=== PATIENT | female | born 1960 | race Caucasian/White ===

== ENCOUNTER 2024-06-28 16:16 | Emergency (ER) | payer OTHER, SELFPAY ==
[2024-06-28 16:17] VITALS: BP 139/83
[2024-06-28 16:47] LABS: % Basophils 0.4 % (0-2); % Eosinophils 1.8 % (0-6); % Immature Granulocytes 0.2 % (0-0.5); % Lymphocytes 40.1 % (20.5-51.1); % Monocytes 8.8 % (1.7-9.3); % Neutrophils 48.7 % (42.2-75.2); Absolute Eosinophils 0.1 10^3/uL (0-0.7); Absolute Monocytes 0.4 10^3/uL (0.1-0.6); Absolute Neutrophils 2.4 10^3/uL (1.4-6.5); Hematocrit 33.9 % (37.0-47.0); Hemoglobin 11.7 g/dL (12.0-16.0); Mean Corp Hgb Conc. 34.5 g/dL (33.0-37.0); Mean Corpuscular Hgb 29.8 pg (27.0-31.0); Mean Corpuscular Volume 86.5 fL (81.0-99.0); Mean Platelet Volume 10.4 fL (7.4-10.4); Nucleated Red Blood Cells % 0 %; Platelet Count 190 10^3/uL (130-400); Red Blood Cell Count 3.92 10^6/uL (4.20-5.40); Red Cell Dist. Width 11.3 % (11.5-14.5); White Blood Cell Count 4.9 10^3/uL (4.8-10.8)
[2024-06-28 17:06] LABS: ALT (SGPT) 13 U/L (0-35); AST (SGOT) 22 U/L (14-36); Albumin 4.6 g/dl (3.5-5.0); Alkaline Phosphatase 82 U/L (38-126); Blood Urea Nitrogen 13 mg/dl (7-17); Calcium 9.9 mg/dl (8.4-10.2); Carbon Dioxide 28 mmol/L (22-30); Chloride 100 mmol/L (98-107); Glucose 92 mg/dl (70-99); Potassium 4.3 mmol/L (3.5-5.1); Sodium 135 mmol/L (135-145); Total Bilirubin 0.5 mg/dl (0.2-1.3); Total Protein 7.2 g/dl (6.3-8.2); eGFR > 60.00
[2024-06-28 17:31] VITALS: BMI 24.7
[2024-06-28 17:39] VITALS: BP 139/81
--- NOTE | 2024-06-28 17:56 | ED.GENMED ---
History of Present Illness
General
Chief Complaint: Abdominal Pain
Time Seen by Provider: 06/28/24 17:36
History of Present Illness
History of Present Illness:
63-year-old female with history of ovarian cancer currently undergoing immunotherapy with Keytruda presents to the emergency department for evaluation of intractable left lower quadrant pain for the past 4 to 6 weeks. Pain is constant, and radiates
to the upper abdomen as well as the left upper thigh. She is currently following at [facility] and last had CT imaging in March. Denies any fevers, night sweats, dysuria, hematuria, or diarrhea/melena. She is apprehensive to take any opioids
Past History
Past History
ED Past Medical History: None; Negative Asthma, HTN, Hypercholesterolemia or NIDDM
ED Past Surgical History: Orthopedic (Knee surgery, Foot surgery left)
Social History
Tobacco: Non-smoker
Alcohol: Daily (Beer 1-2)
Personal:
Living: alone
Review of Systems
Review of Systems
Allergies reviewed?: Yes
All Other Systems: ROS reviewed and negative except as documented in HPI and ROS
Phy Exam
Physical Exam
Physical Exam:
GEN: Well appearing, NAD, WDWN
Eyes: PERRLA, EOMs intact, no scleral icterus
HENT: NCAT, oral mucosa moist
Lungs: CTAB, no wheezes, rales, rhonchi, normal chest wall excursion
Cardiac: RRR, no M/R/G, no peripheral edema. Radial pulses 2+ bilat
Abdomen: Soft, focal lower left quadrant tenderness, no masses, no rigidity
Neuro: AO x 3
MSK: No gross deformity or ecchymosis. No edema. No digital clubbing
Skin: No rashes, petechiae. Normal color, no pallor or jaundice.
Psych: Calm, cooperative, proper hygiene
Course
Orders/Labs/Results
Orders:
Orders
06/28/24 16:39
Complete Blood Count/With Diff Urgent
Comprehensive Metabolic Panel Urgent
06/28/24 17:56
CT Abd/Pel (IV only)-DH only Urgent
Comment:
Reason For Exam: LLQ pain
06/28/24 18:16
Ketorolac [Toradol] 15 mg IV NOW STA
Abnormal Lab Results
06/28/24
16:39
RBC 3.92 L 10^6/uL
(4.20-5.40)
Hgb 11.7 L g/dL
(12.0-16.0)
Hct 33.9 L %
(37.0-47.0)
RDW 11.3 L %
(11.5-14.5)
06/28/24 16:39
06/28/24 16:39
Vital Signs
Initial and Last Documented VS:
Initial Vital Signs
Temp Pulse Resp BP Pulse Ox
97.8 F 61 18 139/83 99
06/28/24 16:17 06/28/24 16:17 06/28/24 16:17 06/28/24 16:17 06/28/24 16:17
Last Documented Vital Signs
Temp Pulse Resp BP Pulse Ox
97.8 F 51 15 125/87 99
06/28/24 16:17 06/28/24 19:00 06/28/24 19:00 06/28/24 19:00 06/28/24 19:00
MDM/Problems Addressed
MDM/Problems Addressed:
At this time the etiology to his symptoms is not clear. There is some vague inflammatory stranding around the sigmoid/descending colon however patient's duration of symptoms would not be consistent with diverticulitis particular given lack of fever
or leukocytosis. There is also no definitive signs diverticuli on imaging. Certainly could be progression of disease and thus she will need to follow-up with [facility] for further evaluation of this. Will prescribe supportive
medications and advise close oncology follow-up
*Critical Care Note
Total Time (30-74mins, 75-104mins- exclusive of procedures): Not Applicable
ED Attending Note
-
Portions of this chart may have been created with voice recognition software.� Occasional wrong word or��sound alike� substitutions may have occurred due to the inherent limitations of voice recognition software.
Discharge Plan
Departure
Patient Disposition: Home (Routine Discharge)
Date of Disposition: 06/28/24
Time of Disposition: 20:18
Patient with high blood pressure during this ER visit?: No
Discharge Problem:
Abdominal pain, left lower quadrant
Instructions: Abdominal Pain
Prescriptions:
New
celecoxib [Celebrex] 200 mg capsule
200 mg PO BID Qty: 30 0RF
oxycodone 5 mg tablet
5 mg PO Q8H PRN (Reason: Pain) Qty: 10 0RF
No Action
cyanocobalamin (vitamin B-12) 500 mcg Tablet
500 mcg PO DAILY
calcium carbonate 500 mg calcium (1,250 mg) Tablet
500 mg PO DAILY
ascorbic acid (vitamin C) [Vitamin C] 500 mg Tablet
500 mg PO DAILY
rizatriptan 5 mg Tablet
5 mg PO DAILYPRN PRN (Reason: migraines)
cholecalciferol (vitamin D3) [Vitamin D3] 25 mcg (1,000 unit) Tablet
25 mcg PO DAILY
Neuriva Plus Brain Performance 1.7 mg-400 mcg- 2.4 mcg Capsule
1 cap PO DAILY
sennosides [Senna Laxative] 8.6 mg Tablet
17.2 mg PO BID Qty: 60 0RF
famotidine 20 mg Tablet
20 mg PO DAILY Qty: 30 0RF
gabapentin 300 mg Capsule
300 mg PO TID Qty: 90 0RF
simethicone 80 mg Tablet,Chewable
80 mg PO QIDPRN PRN (Reason: gas pain) Qty: 30 0RF
acetaminophen [Pain Relief ES (acetaminophen)] 500 mg Tablet
1,000 mg PO TID Qty: 90 0RF
tramadol 50 mg Tablet
50 mg PO Q6 Qty: 30 0RF
hydromorphone 2 mg Tablet
2 mg PO Q8HPRN PRN (Reason: breakthrough pain) Qty: 15 0RF
polyethylene glycol 3350 [Miralax] 17 gram Powder In Packet
17 g PO DAILY Qty: 30 0RF
docusate sodium 100 mg Capsule
100 mg PO BID Qty: 60 0RF
ondansetron HCl 4 mg tablet
4 mg PO Q8H PRN (Reason: nausea and vomiting) 5 Days Qty: 15 0RF
Referrals:
Elza Tomlinson, DO [Family Provider] -
Activity Restrictions/Additional Instructions:
contact your oncology team tomorrow for follow-up discussion
Interventions
Interventions:
*Risk Screen - Suicide Last Done: 06/28/24 16:17
*General Assessment Last Done: 06/28/24 16:17
*Neglect/Abuse Screening Last Done: 06/28/24 16:17
ED- Fall Risk Assessment Last Done: 06/28/24 17:40
*ED COVID-19 Vaccine History Last Done: 06/28/24 17:33
*Nursing Disposition Last Done: 06/28/24 20:29
UN-Tcizgn-Ndryilkgbc Assessment Last Done: 06/28/24 17:38
Discharge Date and Time
Discharge Date/Time: 06/28/24 20:33
Print Language: YI
[2024-06-28 18:01] VITALS: BP 97/79
[2024-06-28] MEDS: TORADOL 15 MG IV (18:21)
[2024-06-28 19:00] VITALS: BP 125/87
== END 2024-06-28 20:33 | disposition home or self-care (01) ==
LOC: EMR 16:16
PROVIDERS: Student in an Organized Health Care Education/Training Program; EMERGENCY PHYSICIAN Emergency Medicine; FAMILY PHYSICIAN Family Medicine
DX: R10.32 Left lower quadrant pain (principal); Z85.43 Personal history of malignant neoplasm of ovary
CPT/HCPCS: 99284; 96374; 74177; 80053; 85025; Q9967

== ENCOUNTER 2024-11-15 03:14 | Observation (INO) | payer OTHER, MEDICARE, SELFPAY ==
[2024-11-14 17:08] VITALS: BMI 22.6
[2024-11-14 17:16] VITALS: BP 147/102
[2024-11-14 17:38] LABS: % Basophils 0.2 % (0-2); % Eosinophils 0.4 % (0-6); % Immature Granulocytes 0.4 % (0-0.5); % Lymphocytes 12.1 % (20.5-51.1); % Monocytes 6.4 % (1.7-9.3); % Neutrophils 80.5 % (42.2-75.2); Absolute Monocytes 0.5 10^3/uL (0.1-0.6); Absolute Neutrophils 6.7 10^3/uL (1.4-6.5); Hematocrit 37.2 % (37.0-47.0); Hemoglobin 12.6 g/dL (12.0-16.0); Mean Corp Hgb Conc. 33.9 g/dL (33.0-37.0); Mean Corpuscular Hgb 29.2 pg (27.0-31.0); Mean Corpuscular Volume 86.3 fL (81.0-99.0); Mean Platelet Volume 9.5 fL (7.4-10.4); Nucleated Red Blood Cells % 0 %; Platelet Count 271 10^3/uL (130-400); Red Blood Cell Count 4.31 10^6/uL (4.20-5.40); Red Cell Dist. Width 12.2 % (11.5-14.5); White Blood Cell Count 8.3 10^3/uL (4.8-10.8)
[2024-11-14 18:02] LABS: ALT (SGPT) 17 U/L (0-35); AST (SGOT) 20 U/L (14-36); Albumin 4.8 g/dl (3.5-5.0); Alkaline Phosphatase 64 U/L (38-126); Blood Urea Nitrogen 15 mg/dl (7-17); Calcium 9.8 mg/dl (8.4-10.2); Carbon Dioxide 28 mmol/L (22-30); Chloride 92 mmol/L (98-107); Glucose 157 mg/dl (70-99); Lipase 25 U/L (23-300); Potassium 4.1 mmol/L (3.5-5.1); Sodium 129 mmol/L (135-145); Total Bilirubin 0.3 mg/dl (0.2-1.3); Total Protein 7.6 g/dl (6.3-8.2); eGFR > 60.00
--- NOTE | 2024-11-14 19:17 | ED.GENMED ---
History of Present Illness
General
Chief Complaint: Abdominal Pain
Source: patient
Exam Limitations: none
Time Seen by Provider: 11/14/24 18:29
History of Present Illness
History of Present Illness:
This is a 64 year old female that comes in with c/o abd pain. States that she is unable to get any relief from the pain. States that this started 2 days ago and it getting worse. Patient was discharge from [place] 5 days ago. Patient had a pain
pump placed in the right abd for Dilaudid. States that she has been nauseated, vomited once and has a hard time urinating. States that she has also felt dizzy. Denies any fever, chills, chest pain, SOB, diarrhea, headache, urinary burning.
Past History
Past History
ED Past Medical History: None and Cancer (Uterine Cancer, Inguiinal lymph nodes removed); Negative Asthma, HTN, Hypercholesterolemia or NIDDM
ED Past Surgical History: Gynecological (Hysterectomy) and Orthopedic ( right Knee surgery, Foot surgery left)
Social History
Tobacco: Non-smoker
Alcohol: None (Beer 1-2 for for a year)
Personal:
Living: alone
Review of Systems
Review of Systems
All Other Systems: ROS reviewed and negative except as documented in HPI and ROS
Constitutional: Reports no symptoms; Denies fever or chills
EENT: Reports no symptoms
Respiratory: Reports no symptoms; Denies cough or trouble breathing
Cardiac: Reports no symptoms; Denies chest pain
ABD/GI: Reports abdominal pain, nausea and vomiting (only once); Denies diarrhea
: Reports difficulty voiding; Denies dysuria, frequency or urgency
Musculoskeletal: Reports no symptoms
Skin: Reports no symptoms
Neurological: Reports dizzy; Denies headache
Psychiatric: Reports no symptoms
Phy Exam
General Physical Exam
General Presentation: mild distress
General age: appears stated age
General Skin: warm and dry
General Habitus: normal
General Mental: alert
General Hydration: dry mucous membranes
ENT Exam
ENT Exam: TM's normal, pharynx normal and neck supple
Eye Exam
Eye Exam: EOMI
Cardiovascular Exam
Cardiovascular Exam: regular rate/rhythm, no edema, no murmur and normal peripheral pulses
Pulmonary Exam
Pulmonary Exam: lungs clear, no respiratory distress, no rales, chest non tender, no crackles, no rhonchi, no wheezing and no cough
Gastrointestinal Exam
Gastrointestinal Exam: normal bowel sounds, soft, no organomegaly, no pulsatile mass, non distended, tender (Generalized abd tenderness with palpation) and other (Pain pump noted right abd. )
Abdominal Scars: other (Horizontal incision line right mid/lateral dry with glue maintained. Negative for any redness. )
Musculoskeletal Exam
Musculoskeletal Exam: full ROM and no edema
Skin Exam
Skin Exam: normal color, warm/dry, no rash and no petechia
Psychiatric Exam
Psychiatric Exam: normal mood/affect
Course
Orders/Labs/Results
Orders:
Orders
11/14/24 17:20
Electrocardiogram (*1) Urgent
Reason for Study: Abdominal Pain
EKG- Treatment ONCE
11/14/24 17:31
Complete Blood Count/With Diff Urgent
Comprehensive Metabolic Panel Urgent
Lipase Urgent
11/14/24 18:52
CT Abd/pel W Iv And Oral Contr Urgent
Comment: Pain pump right lower abd.
Reason For Exam: Generalized abd pain
0.9% Sodium Chloride 1000 ml [Nss] 1,000 ml IV BOLUS
Iohexol [Omnipaque] See Protocol PO NOW STA
Ondansetron Injectable [Zofran] 4 mg IV NOW STA
11/14/24 18:53
Acetaminophen 1000MG/100Ml [Ofirmev] 1,000 mg in 100 ml IV ONCE
Acetaminophen IV Indication:: ED Narcotic Naive Pt-ONCE
Ketorolac [Toradol] 30 mg IV NOW STA
11/14/24 20:49
Urinalysis Reflex To Culture Urgent
Date Specimen was Collected: 11/14/24
Time Specimen was Collected: 20:49
Urine Microscopic Reflex Cult Urgent
Urine Culture Urgent
CAMILO Source: U
Specimen Description:
Date Specimen was Collected: 11/14/24
Time Specimen was Collected: 20:49
11/14/24 23:22
Tamsulosin [Flomax] 0.4 mg PO NOW STA
11/14/24 23:42
Consult Urology [UROLOGY CONSULT] Urgent
Consulting Provider: Jose James
Was physician already notified: Yes
11/15/24 00:01
Admit/Transfer Patient As Directed
Co-Sign Provider:
Level of Care: Observation services
Assign to:: Medical/Surgical
Physician / Group: hospitalist
Diagnosis: nephrolithiasis
11/15/24 00:02
PRN Pain Medication Management As Directed
May give lesser potent ordered pain med per pt: Yes
preference::
Protocol:: Medication orders for pain may be administered in a
manner that supports deferring to patient preference
when the pt is:
- Requesting an ordered lesser potent pain medication.
Least to most potent pain medications are defined
as: acetaminophen < NSAID < tramadol < opioids
(morphine, oxycodone, hydromorphone).
- Requesting a lesser dose of the same medication IF
ORDERED.
- Requesting a less intrusive route of administration
if both routes are prescribed by the provider (PO <
IV).
11/15/24 00:03
Code Status As Directed
Resuscitation Status: Full Code
Abnormal Lab Results
11/14/24 11/14/24
17:31 20:49
Absolute Neuts (auto) 6.7 H 10^3/uL
(1.4-6.5)
Absolute Lymphs (auto) 1.0 L 10^3/uL
(1.2-3.4)
Neutrophils % 80.5 H %
(42.2-75.2)
Lymphocytes % 12.1 L %
(20.5-51.1)
Sodium 129 L mmol/L
(135-145)
Chloride 92 L mmol/L
(98-107)
Creatinine 0.5 L mg/dL
(0.6-1.0)
Glucose 157 H mg/dl
(70-99)
Leukocyte Esterase Rfl Trace A
(Negative)
Urine WBC (Reflex) 16-20 A /HPF
(0-5)
Urine Bacteria (Reflex) Few A
(Negative)
Urine Glucose Trace A
(Negative)
11/14/24 17:31
11/14/24 17:31
Hyponatremia, Chloride low. Hyperglycemia. Lipase normal at 25, Urine questionable for infection, Would wait for culture to treat
Vital Signs
Initial and Last Documented VS:
Initial Vital Signs
Temp Pulse Resp BP Pulse Ox
97.4 F 101 20 147/102 98
11/14/24 17:16 11/14/24 17:16 11/14/24 17:16 11/14/24 17:16 11/14/24 17:16
Last Documented Vital Signs
Temp Pulse Resp BP Pulse Ox
97.4 F 67 18 147/102 96
11/14/24 17:16 11/15/24 01:30 11/15/24 01:30 11/14/24 17:16 11/14/24 22:00
MDM/Problems Addressed
Differential Diagnosis Includes:
Chronic pain, Urinary tract infection. Dehydration. Constipation
MDM/Problems Addressed:
This is a 64 year old female that comes in with c/o abd pain. States that this started 2 days ago and has continued to get worse. States that she called [facility] and was told to come to the ER if it got worse. States that she didn't want to go down
to [facility].
Will check labs. CT abd/pelvis, Urine, give IV fluids and medication for pain.
Back into see patient. Explained that she has a 3mm stone in the right UVJ. There is also 4 new lesion on the liver and there is a Left renal mass. Patient states that she is still having pain. States that she does not feel comfortable going home.
Explained that she may only be admitted for 23 hours. Encouraged patient to increase her water intake. Will admit. Hospitalist notified.
Chronic conditions affecting care: Cancer
Acute Exacerbation and/or Progression of Chronic Illness: Cancer
*Radiology
Radiology exam reviewed: radiology read reviewed (CT- Approximate 3mm calculus at the right ureterovesical junction with mild right hydroureteronephrosis and delayed right sided renal excretion. Small simple right lobe hepatic cyst. At least four
new small low-attenuation hepatic lesions most likely not representing cyst, at least suspicious for), all reviewed NAD by ED Provider (CT cont- suspicious for malignancy/metastatic disease. Slightly high attenuation density in the left renal
pelvis, most likely differential diagnostic possibilities woudl be hemorrhage or tumor. Slight progression of left retroperitoneal lymphadenopathy resulting in possible minimal partial left ) and other (CT con- left sided obstructive uropathy.
Cannot exclude mild diffuse gallbladder wall thickening. Subcentimeter low-attenuation left lobe hepatic lesion, too small to characterize. )
*Pulse Oximetry
Patient hypoxic: no
*EKG
Interpreted by ED Provider?: Yes
Heart Rate: 92
Rate: normal
Rhythm: sinus
[place]: left axis deviation
Interval: normal interval
QRS Pattern: normal QRS
Ischemia: non-specific ST changes (II, III, aVF, V3, V4, V5, V6)
*Logging Crew Supervisor Interpretation
Rate: normal
Heart Rate: 88
*Critical Care Note
Total Time (30-74mins, 75-104mins- exclusive of procedures): Not Applicable
ED Attending Note
-
Portions of this chart may have been created with voice recognition software.� Occasional wrong word or��sound alike� substitutions may have occurred due to the inherent limitations of voice recognition software.
Discharge Plan
Departure
Patient Disposition: Admit
Date of Disposition: 11/14/24
Time of Disposition: 23:28
Admit to: Med/Surg
Presentation/result/management discussed w/ accepting MD/DO: Hospitalist
Patient with high blood pressure during this ER visit?: Yes
Condition: Good
Covid-19: Not Applicable
Discharge Problem:
Abdominal pain, Renal calculus, right
Prescriptions:
No Action
cyanocobalamin (vitamin B-12) 500 mcg Tablet
500 mcg PO DAILY
calcium carbonate 500 mg calcium (1,250 mg) Tablet
500 mg PO DAILY
ascorbic acid (vitamin C) [Vitamin C] 500 mg Tablet
500 mg PO DAILY
rizatriptan 5 mg Tablet
5 mg PO DAILYPRN PRN (Reason: migraines)
cholecalciferol (vitamin D3) [Vitamin D3] 25 mcg (1,000 unit) Tablet
25 mcg PO DAILY
Neuriva Plus Brain Performance 1.7 mg-400 mcg- 2.4 mcg Capsule
1 cap PO DAILY
sennosides [Senna Laxative] 8.6 mg Tablet
17.2 mg PO BID Qty: 60 0RF
famotidine 20 mg Tablet
20 mg PO DAILY Qty: 30 0RF
gabapentin 300 mg Capsule
300 mg PO TID Qty: 90 0RF
simethicone 80 mg Tablet,Chewable
80 mg PO QIDPRN PRN (Reason: gas pain) Qty: 30 0RF
acetaminophen [Pain Relief ES (acetaminophen)] 500 mg Tablet
1,000 mg PO TID Qty: 90 0RF
tramadol 50 mg Tablet
50 mg PO Q6 Qty: 30 0RF
hydromorphone 2 mg Tablet
2 mg PO Q8HPRN PRN (Reason: breakthrough pain) Qty: 15 0RF
polyethylene glycol 3350 [Miralax] 17 gram Powder In Packet
17 g PO DAILY Qty: 30 0RF
docusate sodium 100 mg Capsule
100 mg PO BID Qty: 60 0RF
ondansetron HCl 4 mg tablet
4 mg PO Q8H PRN (Reason: nausea and vomiting) 5 Days Qty: 15 0RF
celecoxib [Celebrex] 200 mg capsule
200 mg PO BID Qty: 30 0RF
oxycodone 5 mg tablet
5 mg PO Q8H PRN (Reason: Pain) Qty: 10 0RF
Referrals:
Elza Tomlinson DO [Family Provider] -
Interventions
Interventions:
*Risk Screen - Suicide Last Done: 11/14/24 17:16
*General Assessment Last Done: 11/15/24 01:50
*Neglect/Abuse Screening Last Done: 11/14/24 17:16
ED- Fall Risk Assessment Last Done: 11/15/24 01:50
*ED COVID-19 Vaccine History Last Done: 11/15/24 01:50
*Nursing Disposition Last Done: 11/15/24 01:50
UL-Oecuou-Sadjiczocd Assessment Last Done: 11/14/24 20:25
Discharge Date and Time
Discharge Date/Time: 11/15/24 01:51
Print Language: GUAMANIAN
[2024-11-14] MEDS: ZOFRAN 4 MG IV (19:21)
[2024-11-14] MEDS: TORADOL 30 MG IV (19:21)
[2024-11-14] MEDS: NSS 1000 IV (19:22)
[2024-11-14] MEDS: OFIRMEV 100 IV (19:23)
[2024-11-14] MEDS: OMNIPAQUE 50 ML PO (19:56)
[2024-11-14 21:17] LABS: Urine Albumin Negative (Neg - Trace); Urine Bilirubin Negative (Negative); Urine Character Clear (Clear); Urine Color Yellow; Urine Glucose Trace (Negative); Urine Ketone Negative (Negative); Urine Leukocyte Trace (Negative); Urine Nitrite Negative (Negative); Urine Occult Blood Negative (Negative); Urine Urobilinogen Negative (Neg - 1+)
[2024-11-14 21:26] LABS: Urine Squamous Cell 16-20 /LPF (Few)
[2024-11-14 21:27] LABS: Urine Urothelial Cell 0-2 /LPF (FEW)
[2024-11-14 21:28] LABS: Urine Red Blood Cell 0-2 /HPF (0-2)
[2024-11-14 21:29] LABS: Urine Bacteria Few (Negative); Urine White Cell 16-20 /HPF (0-5)
--- NOTE | 2024-11-14 23:51 | HPS.HSE ---
Family Physician
-
Family Physician: Elza Tomlinson
Chief Complaint
-
Abdominal pain
History of Present Illness
This is a 64-year-old female with past medical history of uterine cancer status post hysterectomy with metastases who presents to the emergency department with abdominal pain.
Patient has chronic abdominal and generalized pain for which she is on a Dilaudid pump at home. She reports that over the last 4 days she has had more persistent nausea, worsening abdominal pain without urinary symptoms. Patient reports pain on
the right flank to me. However she reported that she had pain on the left side to the emergency department. She denied any fevers or chills. She denies any vomiting and she has had no diarrhea. She did what pain is not well-controlled despite
Dilaudid pump. She is unable to tell me the settings on the pump or how much pain medication she uses. She is currently on Keytruda.
In the ED she was found to have a right-sided kidney stone. She was hemodynamically stable, blood pressure was 147/100 with a pulse of 76. She was afebrile. ECG with normal sinus rhythm. White count was 8.3 hemoglobin and platelet were within
the normal range. Electrolytes only notable for a sodium of 129. UA was unremarkable, she did have white cells and squamous cells but no signs of acute infection no bacteria. CT of the abdomen and pelvis shows an approximate 3 mm calculus at the
right ureterovesical junction with mild right hydroureteronephrosis. She has at least 4 new small lower attenuation hepatic lesions most likely a malignant metastatic disease. Progression of left retroperitoneal lymphadenopathy as well as a left
renal pelvis tumor or hemorrhage.
Medical History
Past Medical History
Past Medical History: Reports Cancer (Uterine cancer status post hysterectomy)
Additional Past Medical History:
Migraine headaches
Past Surgical History: Reports Gynocological (Hysterectomy)
Social History
Tobacco: Non-smoker
Alcohol: None
Drug: None
Personal: Single
Living: Alone
Employment: Retired
Family History
Family History: Not pertinent
Allergies / Home Medications
Allergies reflects when Allergies were last updated in [facility].
Home Medications with original date entered in [facility]
Allergy/Medication List:
Allergies
Allergy/AdvReac Type Severity Reaction Status Date / Time
Cephalosporins Allergy RED Verified 11/14/24 17:15
BLOTCHY
JEAN
codeine Allergy Nausea Verified 11/14/24 17:15
epinephrine Allergy SEVERE Verified 11/14/24 17:15
PAIN IN
NECK
penicillin G Allergy RED Verified 11/14/24 17:15
BLOTCHY
JEAN
Penicillins Allergy RED Verified 11/14/24 17:15
BLOTCHY
JEAN
Home Medications
B6 1.7 mg-folic 400 mcg-B12 2.4 rea-omxubz-yajtfodqnkhz oral capsule (Neuriva Plus Brain Performance) 1 cap PO DAILY Supplement 07/27/23
ascorbic acid (vitamin C) 500 mg tablet (Vitamin C) 500 mg PO DAILY Supplement 07/27/23
calcium carbonate 500 mg PO DAILY Supplement 07/27/23
cholecalciferol (vitamin D3) 25 mcg (1,000 unit) tablet (Vitamin D3) 25 mcg PO DAILY Supplement 07/27/23
cyanocobalamin (vitamin B-12) 500 mcg tablet 500 mcg PO DAILY Supplement 07/27/23
rizatriptan 5 mg tablet 5 mg PO DAILYPRN PRN migraines 07/27/23
acetaminophen 500 mg tablet (Pain Relief Extra Strength (acetaminophen)) 1,000 mg (2 x 500 mg) PO TID #90 tabs 08/06/23
docusate sodium 100 mg capsule 100 mg PO BID #60 caps 08/06/23
famotidine 20 mg tablet 20 mg PO DAILY #30 tabs 08/06/23
gabapentin 300 mg capsule 300 mg PO TID #90 caps 08/06/23
hydromorphone 2 mg tablet 2 mg PO Q8HPRN PRN breakthrough pain #15 tabs 08/06/23
ondansetron HCl 4 mg tablet 4 mg PO Q8H PRN nausea and vomiting 5 days #15 tabs 08/06/23
polyethylene glycol 3350 17 gram oral powder packet (Miralax) 17 g PO DAILY #30 ea 08/06/23
sennosides 8.6 mg tablet (Senna Laxative) 17.2 mg (2 x 8.6 mg) PO BID #60 tabs 08/06/23
simethicone 80 mg chewable tablet 80 mg PO QIDPRN PRN gas pain #30 tabs 08/06/23
tramadol 50 mg tablet 50 mg PO Q6 #30 tabs 08/06/23
celecoxib 200 mg capsule (Celebrex) 200 mg PO BID #30 caps 06/28/24
oxycodone 5 mg tablet 5 mg PO Q8H PRN Pain #10 tabs 06/28/24
Review of Systems
-
History Source: Patient
Constitutional: Reports No Symptoms
EENT: Reports No Symptoms
Respiratory: Reports No Symptoms
Cardiac: Reports No Symptoms
Abdomen/GI: Reports Abdominal Pain and Nausea
: Reports No Symptoms
Musculoskeletal: Reports No Symptoms
Skin: Reports No Symptoms
Neurological: Reports No Symptoms
Endocrine: Reports No Symptoms
Hematologic/Lymphatic: Reports No Symptoms
Psych: Reports No Symptoms
Physical Exam
Vital Signs
Vital Signs
Temp Pulse Resp BP Pulse Ox
97.4 F 76 17 147/102 96
11/14/24 17:16 11/14/24 22:00 11/14/24 22:00 11/14/24 17:16 11/14/24 22:00
Physical Exam
General: Well Developed, Well Nourished, No Apparent Distress and Comfortable
HEENT: NormoCephalic, Anicteric, Moist mucous membranes and Atraumatic
Respiratory: Clear
Cardiac: S1/S2 and Regular Rhythm
Breast: Deferred by me
GI: Soft, Non Distended and Normal Bowel Sounds
Rectal: Deferred by Provider
Genito-urinary: Deferred by me
Musculoskeletal: No Clubbing, No Cyanosis and No Edema
Skin: Warm
Neuro: AO x 3
Hematologic/Lymphatic: No Lymphadenopathy
Psych: Calm
Laboratory Results
-
11/14/24 17:31
11/14/24 17:31
Laboratory Results
Total Bilirubin 0.3 mg/dl (0.2-1.3) 11/14/24 17:31
AST 20 U/L (14-36) 11/14/24 17:31
ALT 17 U/L (0-35) 11/14/24 17:31
Alkaline Phosphatase 64 U/L (38-126) 11/14/24 17:31
Lipase 25 U/L (23-300) 11/14/24 17:31
Data Reviewed
-
CT Scan: Report Reviewed by me
Medical Tests (Nuc Med, Echo, EKG etc): Image Personally Visualized and interpreted
Lab Data: Labs Reviewed by me
Old Records: Reviewed
Impression/Plan
-
IMPRESSION:
64-year-old female with history of uterine cancer status post hysterectomy and currently on Keytruda, chronic pain on Dilaudid pump at home who presents to the emergency department with abdominal pain and nausea and found to have a new 3 mm right
UVJ stone with mild hydroureteronephrosis. There is mention of possibly a new or increased mets to the liver. Since then pain has been worse for the last 4 days is likely related to the kidney stone. The UA is not consistent with an infected
stone and she has no symptoms for urinary tract infection. She is also afebrile and hemodynamically stable. Renal function is at baseline
PLAN:
1. Kidney stone
- admit to med/surg
- iv fluids and pain control
- tamsulosin
- strain urine
- urology consult
2. Uterine Ca
- continue home Keytruda, family to bring meds in am
- was on direct sales representative dilaudid but does not know settings, will give oxycodone and intermittent dialudid
- continue adjunctive pain regimen and bowel regimen
- oncology consult
- consider palliative consult in am for pain management on FORGESMITH
Unfortunately does not have a med-rec with dosages for her FORGESMITH, levothyroxine, movantic & keytruda which needs to be confirmed in am
DVT PPX - lovenox sq
Code status - Full Code
[2024-11-14] MEDS: FLOMAX 0.4 MG PO (23:52)
--- NOTE | 2024-11-15 01:30 | TRANSFER ---
pt arrived from ED via stretcher accompanied by ED RN. pt walked from stretcher to bed with a standy assist. pt AAOx3 upon arrival, complaining of left-sided lower abdominal pain. VSS, call mathews within reach, POC ongoing.
[2024-11-15 03:46] VITALS: BP 155/105; BMI 15.8
[2024-11-15] MEDS: DILAUDID 1 MG IV ×2 (03:55→07:59)
[2024-11-15] MEDS: ZOFRAN 4 MG IV ×2 (03:55→11:18)
[2024-11-15] MEDS: NSS 1000 IV (04:07)
[2024-11-15 07:15] VITALS: BP 173/99
[2024-11-15] MEDS: CELEBREX 200 MG PO (08:00)
[2024-11-15] MEDS: SENOKOT-S 1 TABLET PO (08:00)
[2024-11-15] MEDS: MIRALAX 17 GRAMS PO (08:00)
[2024-11-15] MEDS: NEURONTIN 300 MG PO (08:00)
[2024-11-15] MEDS: FLOMAX 0.4 MG PO (08:01)
[2024-11-15 08:45] LABS: Hematocrit 34.1 % (37.0-47.0); Hemoglobin 11.7 g/dL (12.0-16.0); Mean Corp Hgb Conc. 34.3 g/dL (33.0-37.0); Mean Corpuscular Volume 87.4 fL (81.0-99.0); Mean Platelet Volume 10.3 fL (7.4-10.4); Platelet Count 218 10^3/uL (130-400); Red Cell Dist. Width 12.3 % (11.5-14.5); White Blood Cell Count 6.8 10^3/uL (4.8-10.8)
--- NOTE | 2024-11-15 09:06 | VNURNOTE ---
Chart reviewed. Patient is current with [facility] nursing. Will continue to follow hospital course and DC plans.
[2024-11-15 10:47] LABS: Blood Urea Nitrogen 8 mg/dl (7-17); Calcium 8.8 mg/dl (8.4-10.2); Carbon Dioxide 27 mmol/L (22-30); Chloride 92 mmol/L (98-107); Estimated Creatinine Clearance 76 ml/min; Glucose 116 mg/dl (70-99); Sodium 129 mmol/L (135-145); eGFR > 60.00
--- NOTE | 2024-11-15 10:51 | W.PN.URO.CBU ---
Today's Communication / Plan
-
home on flomax
Assessment / Plan
-
paassable asx 3 mm stone rt uvj and left renal pelvis filling ddefect trial of phoenix gomez at [facility] with flomax and see [facility] for follow up left renal pwelvis mass
Diagnosis
-
Date of Service: November 15, 2024
-
Patient Diagnosis:
rt 3 mm uvj stone ans ledt renal pelvic mass
Post Op Day:
Subjective
-
better this am
Objective
-
Vital Signs
Temp Pulse Resp BP Pulse Ox
98.3 F 85 18 173/99 96
11/15/24 07:15 11/15/24 07:15 11/15/24 07:15 11/15/24 07:15 11/15/24 08:00
Intake and Output
11/14/24 11/15/24 11/16/24
06:59 06:59 06:59
Intake Total 500 / 500 240 / 240
Output Total 250 / 250 325 / 325
Balance 250 / 250 -85 / -85
Intake:
Oral fluids 240 / 240
IV fluids (Total) 500 / 500
Output:
Urine, Voided 250 / 250 325 / 325
Laboratory Results
11/15/24 08:20
11/15/24 08:20
Review of Systems
-
: No Symptoms
Physical Exam
-
General - well developed, well nourished, no acute distress
Chest - clear bilaterally
Abdomen - soft, non-tender, positive bowel sounds, no CVAT, no incisional pain or distention
Genitalia - normal
Rectal - normal
Skin - warm & dry with no rash
Neuro - AOx3, no motor deficits
Extremities - no clubbing, no cyanosis, no edema
Incision - clean, dry
Dressing - clean, dry, intact
Counseling
-
home
Care Review
Data Reviewed
Discussed with: Hospitalist and Nursing
CT Scan: Image Pers Reviewed
--- NOTE | 2024-11-15 11:56 | CON.ONC ---
Impression
Impression
Metastatic endometrial carcinoma
Renal lithiasis
Hypothyroid
Plan
Plan
Currently without significant oncologic related toxicities from Keytruda/Lenvima
Continue to monitor CBC
Pain palliation
Follow-up with her physicians at [facility]
Patient History
History of Present Illness
This is a 64-year-old female with past medical history of uterine cancer status post hysterectomy with metastases who presents to the emergency department with abdominal pain. Patient has chronic abdominal and generalized pain for which she is on a
Dilaudid pump at home. She reports that over the last 4 days she has had more persistent nausea, worsening abdominal pain without urinary symptoms. Patient reports pain on the right flank pain and was noted to have a CT which indicated nephro
lithiasis. She denies any vomiting and she has had no diarrhea. She did what pain is not well-controlled despite Dilaudid pump. She is currently been on Keytruda and Lenvima through the doctors at [place].
Past-Medical/Surgical History
Past Medical History
Endometrial carcinoma
Migraine headaches
Past Surgical History: Reports Gynocological (Hysterectomy)
Social History
Tobacco: Non-smoker
Alcohol: None
Drug: None
Personal: Single
Living: Alone
Employment: Retired
Family History
Family History: Not pertinent
Patient Medication
�Medication �Instructions �Recorded �Confirmed �Last Taken �Type
B6 1.7 mg-folic 400 mcg-B12 2.4 1 cap PO DAILY Supplement 07/27/23 07/31/23 Unknown History
[id number]-wyhmlawvjoji oral
capsule (Neuriva Plus Brain
Performance)
ascorbic acid (vitamin C) 500 mg 500 mg PO DAILY Supplement 07/27/23 07/31/23 Unknown History
tablet (Vitamin C)
calcium carbonate 500 mg PO DAILY Supplement 07/27/23 07/31/23 Unknown History
cholecalciferol (vitamin D3) 25 25 mcg PO DAILY Supplement 07/27/23 07/31/23 Unknown History
mcg (1,000 unit) tablet (Vitamin
D3)
cyanocobalamin (vitamin B-12) 500 500 mcg PO DAILY Supplement 07/27/23 07/31/23 Unknown History
mcg tablet
rizatriptan 5 mg tablet 5 mg PO DAILYPRN PRN migraines 07/27/23 07/31/23 Unknown History
acetaminophen 500 mg tablet (Pain 1,000 mg (2 x 500 mg) PO TID #90 08/06/23 Unknown Rx
Relief Extra Strength tabs
(acetaminophen))
docusate sodium 100 mg capsule 100 mg PO BID #60 caps 08/06/23 Unknown Rx
famotidine 20 mg tablet 20 mg PO DAILY #30 tabs 08/06/23 Unknown Rx
gabapentin 300 mg capsule 300 mg PO TID #90 caps 08/06/23 Unknown Rx
hydromorphone 2 mg tablet 2 mg PO Q8HPRN PRN breakthrough 08/06/23 Unknown Rx
pain #15 tabs
ondansetron HCl 4 mg tablet 4 mg PO Q8H PRN nausea and 08/06/23 Unknown Rx
vomiting 5 days #15 tabs
polyethylene glycol 3350 17 gram 17 g PO DAILY #30 ea 08/06/23 07/31/23 Unknown Rx
oral powder packet (Miralax)
sennosides 8.6 mg tablet (Senna 17.2 mg (2 x 8.6 mg) PO BID #60 08/06/23 Unknown Rx
Laxative) tabs
simethicone 80 mg chewable tablet 80 mg PO QIDPRN PRN gas pain #30 08/06/23 Unknown Rx
tabs
tramadol 50 mg tablet 50 mg PO Q6 #30 tabs 08/06/23 Unknown Rx
celecoxib 200 mg capsule (Celebrex) 200 mg PO BID #30 caps 06/28/24 Unknown Rx
oxycodone 5 mg tablet 5 mg PO Q8H PRN Pain #10 tabs 06/28/24 Unknown Rx
Active Medications
Generic Name Dose Route Start Last Admin
Trade Name Freq PRN Reason Stop Dose Admin
Acetaminophen 650 mg 11/15/24 03:37
Acetaminophen 325 Mg Tablet PO 12/13/24 03:36
Q4HPRN PRN
mild pain/WINSLOW/temp> 100.4F
Bisacodyl 10 mg 11/15/24 03:37
Bisacodyl 10 Mg Rectal Suppository RECTAL 12/13/24 03:36
[id number] PRN
constipation
Celecoxib 200 mg 11/15/24 08:00 11/15/24 08:00
Celecoxib 200 Mg Capsule PO 12/13/24 07:59 200 mg
BID DYANA Administration
Enoxaparin Sodium 40 mg 11/15/24 18:00
Enoxaparin Sodium 40 Mg/0.4 Ml Syringe SC 12/13/24 17:59
QPM DYANA
Gabapentin 300 mg 11/15/24 08:00 11/15/24 08:00
Gabapentin 300 Mg Capsule PO 12/13/24 07:59 300 mg
TID DYANA Administration
Hydromorphone HCl 1 mg 11/15/24 03:37 11/15/24 07:59
Hydromorphone 0.5 Mg/0.5 Ml Syringe IV 11/29/24 03:36 1 mg
Q4HPRN PRN Administration
severe pain
Sodium Chloride 1,000 mls @ 100 mls/hr 11/15/24 03:37 11/15/24 04:07
Nss IV 1,000 mls
.Q10H DYANA Administration
Ketorolac Tromethamine 10 mg 11/15/24 03:37
Ketorolac 15 Mg/Ml Injection IV 11/20/24 03:36
Q6HPRN PRN
moderate pain
Ondansetron HCl 4 mg 11/15/24 03:37 11/15/24 11:18
Ondansetron 4 Mg/2 Ml Vial IV 12/13/24 03:36 4 mg
Q6HPRN PRN Administration
nausea and vomiting
Polyethylene Glycol 17 grams 11/15/24 03:37 11/15/24 08:00
Polyethylene Glycol Powder 17 Grams Packet PO 12/13/24 03:36 17 grams
DAILYPRN PRN Administration
constipation
Senna/Docusate Sodium 1 tablet 11/15/24 03:37 11/15/24 08:00
Docusate W/Senna (Anya-Colace) Tablet PO 12/13/24 03:36 1 tablet
BIDPRN PRN Administration
constipation
Simethicone 80 mg 11/15/24 03:37
Simethicone 80 Mg Chewable Tablet PO 12/13/24 03:36
QIDPRN PRN
gas pain
Tamsulosin HCl 0.4 mg 11/15/24 08:00 11/15/24 08:01
Tamsulosin 0.4 Mg Capsule PO 12/13/24 07:59 0.4 mg
DAILY DYANA Administration
Review of Systems
-
12 point review of systems fails elicit additional complaints other than those reviewed in the HPI
Physical Exam
-
Physical Exam
General: Well Developed, Well Nourished, No Apparent Distress and Comfortable
HEENT: NC, Anicteric, Moist mucous membranes and Atraumatic
Respiratory: Clear
Cardiac: S1/S2 and Regular Rhythm
GI: Soft, Non Distended and Normal Bowel Sounds
Musculoskeletal: No Clubbing, No Cyanosis and No Edema
Skin: Warm
Neuro: AO x 3
Hematologic/Lymphatic: No Lymphadenopathy
Psych: Calm
Labs
Lab Results
WBC 6.8 10^3/uL (4.8-10.8) 11/15/24 08:20
RBC 3.90 10^6/uL (4.20-5.40) L 11/15/24 08:20
Hgb 11.7 g/dL (12.0-16.0) L 11/15/24 08:20
Hct 34.1 % (37.0-47.0) L 11/15/24 08:20
MCV 87.4 fL (81.0-99.0) 11/15/24 08:20
MCH 30.0 pg (27.0-31.0) 11/15/24 08:20
MCHC 34.3 g/dL (33.0-37.0) 11/15/24 08:20
RDW 12.3 % (11.5-14.5) 11/15/24 08:20
Plt Count 218 10^3/uL (130-400) 11/15/24 08:20
MPV 10.3 fL (7.4-10.4) 11/15/24 08:20
Abs Immat Gran (auto) 0.0 10^3/uL (0-0.05) 11/14/24 17:31
Absolute Neuts (auto) 6.7 10^3/uL (1.4-6.5) H 11/14/24 17:31
Absolute Lymphs (auto) 1.0 10^3/uL (1.2-3.4) L 11/14/24 17:31
Absolute Monos (auto) 0.5 10^3/uL (0.1-0.6) 11/14/24 17:31
Absolute Eos (auto) 0.0 10^3/uL (0-0.7) 11/14/24 17:31
Absolute Basos (auto) 0.0 10^3/uL (0-0.2) 11/14/24 17:31
Immature Gran % 0.4 % (0-0.5) 11/14/24 17:31
Neutrophils % 80.5 % (42.2-75.2) H 11/14/24 17:31
Lymphocytes % 12.1 % (20.5-51.1) L 11/14/24 17:31
Monocytes % 6.4 % (1.7-9.3) 11/14/24 17:31
Eosinophils % 0.4 % (0-6) 11/14/24 17:31
Basophils % 0.2 % (0-2) 11/14/24 17:31
Creatinine 0.6 mg/dL (0.6-1.0) 11/15/24 08:20
Vital Signs
Vital Signs
Temp Pulse Resp BP Pulse Ox
98.3 F 85 18 173/99 96
11/15/24 07:15 11/15/24 07:15 11/15/24 07:15 11/15/24 07:15 11/15/24 08:00
--- NOTE | 2024-11-15 12:01 | W.PN.HOSP.TC ---
Today's Communication/Plan
-
Ready for discharge with new script of flomax
Assessment / Plan
Assessment / Plan
64-year-old woman with history of:
uterine cancer status post hysterectomy (currently on Keytruda),
chronic pain on Dilaudid pump at home
presents with abdominal pain and nausea and was found to have a new 3 mm right UVJ stone with mild hydroureteronephrosis. Renal function is at baseline. Other labs at baseline.
PLAN:
1. Kidney stone - seen by urology service and recommendation is to send her home on flomax
2. Uterine Ca
- continue home Keytruda,
- continue home chinese medicine practitioner dilaudid
- continue adjunctive pain regimen and bowel regimen
- oncology consult as outpatient
- consider palliative consult for better management of pain/nausea as outpatient
3. Dry mouth. Recommended lemon candy trial at home
Dispo: Patient requested to go home and continue care at home. Despite being in pain and having nausea. She and I agreed that further time as inpatient is unlikely to resolve her chronic symptoms.
She agrees with plan to be discharged.
Code status - Full Code
Anticipated Discharge: Today
Subjective/Interval History
-
Date of Service: November 15, 2024
Patient's chronic pain and chronic nausea continue unchanged.
Objective Data
-
Labs:
Laboratory Results
11/15/24
08:20
WBC 6.8
Hgb 11.7 L
Hct 34.1 L
Plt Count 218
Sodium 129 L
Potassium 4.0
Chloride 92 L
Carbon Dioxide 27
BUN 8
Creatinine 0.6
Glucose 116 H
Calcium 8.8
Vital Signs:
Vital Signs
Temp Pulse Resp BP Pulse Ox
98.3 F 85 18 173/99 96
11/15/24 07:15 11/15/24 07:15 11/15/24 07:15 11/15/24 07:15 11/15/24 08:00
I&O
11/14/24 11/15/24 11/16/24
06:59 06:59 06:59
Intake Total 500 / 500 240 / 240
Output Total 250 / 250 325 / 325
Balance 250 / 250 -85 / -85
Review of Systems
-
History Source: Patient
All other systems: Reviewed and negative
Physical Exam
-
General: Appears in Distress, Pain, Appears Chronically Ill and Cachectic
HEENT: Nose Appears Normal and Ears Appear Normal
Respiratory: Clear to Auscultation
Cardiac: Regular Rhythm and S1/S2
GI: Soft, Nondistended and Tender
Musculoskeletal: No Clubbing, No Cyanosis and No Edema
Skin: Warm and Dry
Neuro: Awake, Alert, Oriented and AO x 3
Psych: Calm
Data Reviewed
-
Labs: Labs Reviewed by me
[2024-11-15 12:12] VITALS: BP 155/80
--- NOTE | 2024-11-15 12:17 | CM ---
CM met with [place] who advised that she resides alone in a 2 story townhouse. Her son will pick her up at discharge, anticipated for today, and she is agreeable to resumption of [facility]. [facility] Liaison notified of same.
Plan: Discharge to home with [facility]
PCP - Elza Tomlinson
Pharmacy - [facility]
[2024-11-15 13:32] VITALS: BMI 15.8
--- NOTE | 2024-11-15 14:33 | W.DCSUMMARY ---
Discharge Summary
Discharge Data
Date of Admission: 11/15/24
Date of Discharge: 11/15/24
Total time spent discharging patient (in min): 36
-
Pending Results: No
Hospital Course
Principal Diagnosis:
Kidney stone
Chronic Diagnoses:�
Cancer (Uterine cancer status post hysterectomy, with mets) - on active chemotherapy
Migraine headaches
Osteopenia
Allergic Rhinitis
torn R med meniscus-arthroscopy
GERD
lumbar radiculitis-epidural steroids (2009)
Peptic ulcer disease
Dense breasts
endometrial cancer (2022)
Procedure: surgery L foot()
colonoscopy 2016
Breast ultrasound 2017
lt knee arthroscopy
hysterectomy 09/09/2023
Consultations:�
Urology
Procedures:�
None
Clinical course:�
64-year-old woman with history of:
uterine cancer status post hysterectomy (currently on Keytruda),
chronic pain on Dilaudid pump at home
presented with abdominal pain and nausea and was found to have a new 3 mm right UVJ stone with mild hydroureteronephrosis. Renal function was at baseline. Other labs were at baseline.
1. Kidney stone - seen by urology service and recommendation was to send her home on flomax
2. Uterine Ca
- continue home Keytruda,
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
- continue adjunctive pain regimen and bowel regimen
- oncology consult as outpatient
- consider palliative consult for better management of pain/nausea as outpatient
3. Dry mouth. Recommended lemon candy trial at home
Dispo: Patient requested to go home and continue care at home. Despite being in pain and having nausea. She and I agreed that further time as inpatient is unlikely to resolve her chronic symptoms.
She agrees with plan to be discharged.
As for the rest of his medical problems, they were stable during his hospital stay.
Discharge Plan
-
Patient Disposition: Home (Routine Discharge)
Discharge Diagnosis/Procedures: Kidney stone
Diet: No restrictions and As tolerated
Activity: As tolerated
Driving Restrictions: Not until seen by your Dr
Bathing Restrictions: None
Referrals:
Jose James MD [Active] - (you have a passable rt kidney stone near bladder increase fluids expect blood in urine call if too much pain or fever chills You also have 4 tiny stones rt kidney and you have left renal mass and possibly
new metastases in liver ... you must tell Adrian Garnica about mass and liver take disk with you ... Dr James [phone] [employer])
Elza Tomlinson DO [Family Provider] -
Prescriptions:
New
tamsulosin 0.4 mg Capsule
0.4 mg PO DAILY Qty: 30 0RF
Continued
cyanocobalamin (vitamin B-12) 500 mcg Tablet
500 mcg PO DAILY
calcium carbonate 500 mg calcium (1,250 mg) Tablet
500 mg PO DAILY
ascorbic acid (vitamin C) [Vitamin C] 500 mg Tablet
500 mg PO DAILY
rizatriptan 5 mg Tablet
5 mg PO DAILYPRN PRN (Reason: migraines)
cholecalciferol (vitamin D3) [Vitamin D3] 25 mcg (1,000 unit) Tablet
25 mcg PO DAILY
Neuriva Plus Brain Performance 1.7 mg-400 mcg- 2.4 mcg Capsule
1 cap PO DAILY
sennosides [Senna Laxative] 8.6 mg Tablet
17.2 mg PO BID Qty: 60 0RF
famotidine 20 mg Tablet
20 mg PO DAILY Qty: 30 0RF
gabapentin 300 mg Capsule
300 mg PO TID Qty: 90 0RF
simethicone 80 mg Tablet,Chewable
80 mg PO QIDPRN PRN (Reason: gas pain) Qty: 30 0RF
acetaminophen [Pain Relief ES (acetaminophen)] 500 mg Tablet
1,000 mg PO TID Qty: 90 0RF
tramadol 50 mg Tablet
50 mg PO Q6 Qty: 30 0RF
hydromorphone 2 mg Tablet
2 mg PO Q8HPRN PRN (Reason: breakthrough pain) Qty: 15 0RF
polyethylene glycol 3350 [Miralax] 17 gram Powder In Packet
17 g PO DAILY Qty: 30 0RF
docusate sodium 100 mg Capsule
100 mg PO BID Qty: 60 0RF
ondansetron HCl 4 mg tablet
4 mg PO Q8H PRN (Reason: nausea and vomiting) 5 Days Qty: 15 0RF
celecoxib [Celebrex] 200 mg capsule
200 mg PO BID Qty: 30 0RF
oxycodone 5 mg tablet
5 mg PO Q8H PRN (Reason: Pain) Qty: 10 0RF
Discharge Orders:
Discharge Patient (As Directed); Ordered 11/15/24
Ordered By: Juma Martinez
Discharge Date and Time
Discharge Date/Time: 11/15/24 14:04
Print Language: [id number]
== END 2024-11-15 14:04 | disposition home or self-care (01) ==
LOC: 4 EAST ACU 03:14
PROVIDERS: Clinical Nurse Specialist Family Health; Emergency Medicine; ADMITTING PHYSICIAN Internal Medicine; ATTENDING PHYSICIAN Internal Medicine; CONSULT PHYSICIAN Specialist; EMERGENCY PHYSICIAN Student in an Organized Health Care Education/Training Program; FAMILY PHYSICIAN Family Medicine; OTHER PHYSICIAN Internal Medicine Hematology & Oncology
DX: N13.2 Hydronephrosis with renal and ureteral calculous obstruction (principal); R10.9 Unspecified abdominal pain; R42 Dizziness and giddiness; C54.1 Malignant neoplasm of endometrium; E87.1 Hypo-osmolality and hyponatremia; E11.65 Type 2 diabetes mellitus with hyperglycemia; E03.9 Hypothyroidism, unspecified; G89.29 Other chronic pain; N28.89 Other specified disorders of kidney and ureter; K76.89 Other specified diseases of liver; R68.2 Dry mouth, unspecified; R59.0 Localized enlarged lymph nodes; Z88.1 Allergy status to other antibiotic agents; Z88.5 Allergy status to narcotic agent; Z88.0 Allergy status to penicillin; Z90.710 Acquired absence of both cervix and uterus; Z88.8 Allergy status to other drugs, medicaments and biological substances; Z85.42 Personal history of malignant neoplasm of other parts of uterus; Z60.2 Problems related to living alone; R94.31 Abnormal electrocardiogram [ECG] [EKG]; Z79.891 Long term (current) use of opiate analgesic
CPT/HCPCS: 74177; 80048; 80053; 81003; 81015; 83690; 85025; 85027; 87086; 93005; 96361; 96374; 96375; 99285; G0378; Q9967

== ENCOUNTER 2024-11-16 23:28 | Inpatient (IN) | payer OTHER, MEDICARE, SELFPAY ==
[2024-11-16 10:25] VITALS: BP 132/89
[2024-11-16 15:21] LABS: Hematocrit 36.7 % (37.0-47.0); Hemoglobin 12.3 g/dL (12.0-16.0); Mean Corp Hgb Conc. 33.5 g/dL (33.0-37.0); Mean Corpuscular Hgb 29.7 pg (27.0-31.0); Mean Corpuscular Volume 88.6 fL (81.0-99.0); Mean Platelet Volume 10.2 fL (7.4-10.4); Platelet Count 222 10^3/uL (130-400); Red Blood Cell Count 4.14 10^6/uL (4.20-5.40); Red Cell Dist. Width 12.4 % (11.5-14.5); White Blood Cell Count 9.6 10^3/uL (4.8-10.8)
[2024-11-16 15:22] VITALS: BMI 22.5
[2024-11-16 15:35] LABS: Blood Urea Nitrogen 14 mg/dl (7-17); Calcium 9.4 mg/dl (8.4-10.2); Carbon Dioxide 29 mmol/L (22-30); Chloride 90 mmol/L (98-107); Estimated Creatinine Clearance 71 ml/min; Glucose 147 mg/dl (70-99); Sodium 128 mmol/L (135-145); eGFR > 60.00
--- NOTE | 2024-11-16 15:49 | ED.MUSCINJ ---
HPI-Injury
<Toribio Dawson PA-C - Last Filed: 11/19/24 07:04>
General
Chief Complaint: Musculo-Skeletal Complaint
Source: patient
Exam Limitations: none
Time Seen by Provider: 11/16/24 14:32
History of Present Illness-Injury
Initial Injury comments:
64-year-old female with history of uterine cancer presents with ongoing lower back pain but now new onset leg numbness and weakness. She was here 2 days ago diagnosed with a kidney stone but had some tingling in her legs at that time. Since then
she has had progressive weakness and tingling to her legs to the point now where she is unable to lift her legs off the bed or ambulate. She notes her legs feel numb. She also notes she is having trouble urinating. She denies a fever. She does
have a pain pump that she gives her self Dilaudid with. No fevers. No chest pain or shortness of breath. No new injury. No other complaints
Past History
<Toribio Dawson PA-C - Last Filed: 11/19/24 07:04>
Past History
ED Past Medical History: None and Cancer (Uterine Cancer, Inguiinal lymph nodes removed); Negative Asthma, HTN, Hypercholesterolemia or NIDDM
ED Past Surgical History: Gynecological (Hysterectomy) and Orthopedic ( right Knee surgery, Foot surgery left)
Social History
Tobacco: Non-smoker
Alcohol: None (Beer 1-2 for for a year)
Personal:
Living: alone
Phy Exam
<Toribio Dawson PA-C - Last Filed: 11/19/24 07:04>
Physical Exam
Physical Exam:
General: well appearing female NAD
HEENT: Nc/AT
Heart: RRR, no mumurs
Lungs: CTA bilaterally
Neurologic exam: Slightly decreased sensation to both legs. Patient has weakness in both extremities unable to lift leg off the bed. Unable to support her leg against gravity. Bilateral patellar reflexes are 2+. There are several beats of clonus
in bilateral ankles. Skin is intact without erythema or rash
Injury Course
<Toribio Dawson PA-C - Last Filed: 11/19/24 07:04>
Orders/Labs/Results
Orders:
Orders
11/16/24 14:59
Bladder Scan- Treatment ONCE
11/16/24 15:10
Basic Metabolic Panel Urgent
CRP [C-Reactive Protein] Urgent
Complete Blood Count/With Diff Urgent
Sed Rate [Erythrocyte Sed Rate] Urgent
11/16/24 15:29
MR Lumbar W/o & With Contrast Urgent
Comment:
Reason For Exam: leg numbness, urinary retention
Recent pill cam endoscopy?: No
11/16/24 15:57
COVID-19 Antigen Urgent
Source: Nasal Swab
Comprehensive Metabolic Panel Urgent
Influenza A+B Rapid Molecular Urgent
CAMILO Source: Nasal Swab
Specimen Description:
11/16/24 16:41
Ketorolac [Toradol] 15 mg IV NOW STA
11/16/24 20:33
Ketorolac [Toradol] 15 mg IV NOW STA
11/16/24 23:16
Admit/Transfer Patient As Directed
Co-Sign Provider:
Level of Care: Inpatient admission
Assign to:: Medical/Surgical
Physician / Group: riley ochoa
Diagnosis: intrathecal pain pump malfunction w/paraspinal fluid collection
Reason for Hospitalization: intrathecal pain pump malfunction w/paraspinal fluid collection
Expected length of stay greater than two midnights?: Yes
ELOS- Estimated Length of Stay in days: 5
I certify the patient meets the requirements for IP care: Yes
11/16/24 23:17
Code Status As Directed
Resuscitation Status: Full Code
11/16/24 23:20
PRN Pain Medication Management As Directed
May give lesser potent ordered pain med per pt: Yes
preference::
Protocol:: Medication orders for pain may be administered in a
manner that supports deferring to patient preference
when the pt is:
- Requesting an ordered lesser potent pain medication.
Least to most potent pain medications are defined
as: acetaminophen < NSAID < tramadol < opioids
(morphine, oxycodone, hydromorphone).
- Requesting a lesser dose of the same medication IF
ORDERED.
- Requesting a less intrusive route of administration
if both routes are prescribed by the provider (PO <
IV).
11/16/24 23:23
Acetaminophen [Tylenol] 1,000 mg PO TIDPRN PRN
HYDROmorphone [Dilaudid] 1 mg IV Q4HPRN PRN
Ondansetron Injectable [Zofran] 4 mg IV Q6HPRN PRN
11/17/24 01:41
Bisacodyl [Dulcolax] 10 mg RECTAL DAILYPRN PRN
11/17/24 01:41
Activity As Directed
Activity Level: As Tolerated
Enema As Directed
Type: Milk and molasses
Amount: 1
Frequency: prn no bm with miralax
Intake/ Output As Directed
Frequency: Per unit guidelines
Pneumatic Compression Sleeves As Directed
Type: Knee high
Vital Signs As Directed
Frequency: Per unit guidelines
Ot Eval And Treat Routine
Pt Eval And Treat Routine
Activity Level: As Tolerated
DX Deep Vein Thrombosis Video Routine
11/17/24 03:51
Rizatriptan Orally Disintegrat [Maxalt Daycare Manager (Orally Disintegrating)] 5 mg PO DAILYPRN PRN
11/17/24 05:45
Basic Metabolic Panel IN AM
Complete Blood Count/With Diff IN AM
11/17/24 06:00
Levothyroxine [Synthroid] 50 mcg PO DAILY@0600
11/17/24 08:00
Celecoxib [Celebrex] 200 mg PO BID
Gabapentin [Neurontin] 300 mg PO TID
Polyethylene Glycol Powder [Miralax] 17 grams PO BID
Sennosides [Senokot] 17.2 mg PO BID
Simethicone [Mylicon] 80 mg PO BID
lenvatinib [Lenvima] 14 mg PO DAILY
naloxegol [Movantik] 25 mg PO DAILY
11/17/24 Dinner
Regular
At Your Request: Full Participation
Fluid Restriction: 1200 mL/day (40 oz)
11/18/24 06:40
Basic Metabolic Panel IN AM
Complete Blood Count/With Diff IN AM
11/19/24 04:29
Basic Metabolic Panel IN AM
Complete Blood Count/With Diff IN AM
11/20/24 06:00
Basic Metabolic Panel IN AM
Complete Blood Count/With Diff IN AM
Abnormal Lab Results
11/16/24 11/16/24
15:10 15:57
RBC 4.14 L 10^6/uL
(4.20-5.40)
Hct 36.7 L %
(37.0-47.0)
Absolute Neuts (auto) 8.4 H 10^3/uL
(1.4-6.5)
Absolute Lymphs (auto) 0.6 L 10^3/uL
(1.2-3.4)
Neutrophils % 87.4 H %
(42.2-75.2)
Lymphocytes % 6.3 L %
(20.5-51.1)
Sodium 128 L mmol/L 129 L mmol/L
(135-145) (135-145)
Chloride 90 L mmol/L 94 L mmol/L
(98-107) (98-107)
Creatinine 0.5 L mg/dL
(0.6-1.0)
Glucose 147 H mg/dl 140 H mg/dl
(70-99) (70-99)
Total Protein 6.0 L D g/dl
(6.3-8.2)
11/16/24 15:10
11/16/24 15:57
<Chris Vasquez, DO - Last Filed: 11/18/24 02:40>
Orders/Labs/Results
Orders:
Orders
11/16/24 14:59
Bladder Scan- Treatment ONCE
11/16/24 15:10
Basic Metabolic Panel Urgent
CRP [C-Reactive Protein] Urgent
Complete Blood Count/With Diff Urgent
Sed Rate [Erythrocyte Sed Rate] Urgent
11/16/24 15:29
MR Lumbar W/o & With Contrast Urgent
Comment:
Reason For Exam: leg numbness, urinary retention
Recent pill cam endoscopy?: No
11/16/24 15:57
COVID-19 Antigen Urgent
Source: Nasal Swab
Comprehensive Metabolic Panel Urgent
Influenza A+B Rapid Molecular Urgent
CAMILO Source: Nasal Swab
Specimen Description:
11/16/24 16:41
Ketorolac [Toradol] 15 mg IV NOW STA
11/16/24 20:33
Ketorolac [Toradol] 15 mg IV NOW STA
11/16/24 23:16
Admit/Transfer Patient As Directed
Co-Sign Provider:
Level of Care: Inpatient admission
Assign to:: Medical/Surgical
Physician / Group: riley ochoa
Diagnosis: intrathecal pain pump malfunction w/paraspinal fluid collection
Reason for Hospitalization: intrathecal pain pump malfunction w/paraspinal fluid collection
Expected length of stay greater than two midnights?: Yes
ELOS- Estimated Length of Stay in days: 5
I certify the patient meets the requirements for IP care: Yes
11/16/24 23:17
Code Status As Directed
Resuscitation Status: Full Code
11/16/24 23:20
PRN Pain Medication Management As Directed
May give lesser potent ordered pain med per pt: Yes
preference::
Protocol:: Medication orders for pain may be administered in a
manner that supports deferring to patient preference
when the pt is:
- Requesting an ordered lesser potent pain medication.
Least to most potent pain medications are defined
as: acetaminophen < NSAID < tramadol < opioids
(morphine, oxycodone, hydromorphone).
- Requesting a lesser dose of the same medication IF
ORDERED.
- Requesting a less intrusive route of administration
if both routes are prescribed by the provider (PO <
IV).
11/16/24 23:23
Acetaminophen [Tylenol] 1,000 mg PO TIDPRN PRN
HYDROmorphone [Dilaudid] 1 mg IV Q4HPRN PRN
Ondansetron Injectable [Zofran] 4 mg IV Q6HPRN PRN
11/17/24 01:41
Bisacodyl [Dulcolax] 10 mg RECTAL DAILYPRN PRN
11/17/24 01:41
Activity As Directed
Activity Level: As Tolerated
Enema As Directed
Type: Milk and molasses
Amount: 1
Frequency: prn no bm with miralax
Intake/ Output As Directed
Frequency: Per unit guidelines
Pneumatic Compression Sleeves As Directed
Type: Knee high
Vital Signs As Directed
Frequency: Per unit guidelines
Ot Eval And Treat Routine
Pt Eval And Treat Routine
Activity Level: As Tolerated
DX Deep Vein Thrombosis Video Routine
11/17/24 03:51
Rizatriptan Orally Disintegrat [Maxalt Daycare Manager (Orally Disintegrating)] 5 mg PO DAILYPRN PRN
11/17/24 05:45
Basic Metabolic Panel IN AM
Complete Blood Count/With Diff IN AM
11/17/24 06:00
Levothyroxine [Synthroid] 50 mcg PO DAILY@0600
11/17/24 08:00
Celecoxib [Celebrex] 200 mg PO BID
Gabapentin [Neurontin] 300 mg PO TID
Polyethylene Glycol Powder [Miralax] 17 grams PO BID
Sennosides [Senokot] 17.2 mg PO BID
Simethicone [Mylicon] 80 mg PO BID
lenvatinib [Lenvima] 14 mg PO DAILY
naloxegol [Movantik] 25 mg PO DAILY
11/17/24 Dinner
Regular
At Your Request: Full Participation
Fluid Restriction: 1200 mL/day (40 oz)
11/18/24 06:40
Basic Metabolic Panel IN AM
Complete Blood Count/With Diff IN AM
11/19/24 04:29
Basic Metabolic Panel IN AM
Complete Blood Count/With Diff IN AM
11/20/24 06:00
Basic Metabolic Panel IN AM
Complete Blood Count/With Diff IN AM
Abnormal Lab Results
11/16/24 11/16/24
15:10 15:57
RBC 4.14 L 10^6/uL
(4.20-5.40)
Hct 36.7 L %
(37.0-47.0)
Absolute Neuts (auto) 8.4 H 10^3/uL
(1.4-6.5)
Absolute Lymphs (auto) 0.6 L 10^3/uL
(1.2-3.4)
Neutrophils % 87.4 H %
(42.2-75.2)
Lymphocytes % 6.3 L %
(20.5-51.1)
Sodium 128 L mmol/L 129 L mmol/L
(135-145) (135-145)
Chloride 90 L mmol/L 94 L mmol/L
(98-107) (98-107)
Creatinine 0.5 L mg/dL
(0.6-1.0)
Glucose 147 H mg/dl 140 H mg/dl
(70-99) (70-99)
Total Protein 6.0 L D g/dl
(6.3-8.2)
11/16/24 15:10
11/16/24 15:57
<Toribio Dawson PA-C - Last Filed: 11/19/24 07:04>
MDM/Problems Addressed
Differential Diagnosis Includes:
Patient with leg numbness and weakness. Bedside bladder scan after attempt of voiding shows 650 mL of urine in her bladder. Will straight cath the bladder for urine however of concern for potential spinal canal involvement secondary to the leg
numbness and urinary retention. Patient does have a pain pump but discussed with radiology and ED attending. Will order MRI with and without contrast of the lumbar spine. Labs pending
<Toribio Dawson PA-C - Last Filed: 11/19/24 07:04>
*Critical Care Note
Total Time (30-74mins, 75-104mins- exclusive of procedures): Not Applicable
ED Attending Note
<ROGER Benítez Last Filed: 11/19/24 07:04>
-
Portions of this chart may have been created with voice recognition software.� Occasional wrong word or��sound alike� substitutions may have occurred due to the inherent limitations of voice recognition software.
<Chris Vasquez, - Last Filed: 11/18/24 02:40>
ED Attending Note
Patient seen and examined by attending physician: Yes
ED Attending Note:
I have reviewed and agree with history treatment plan by Rohit Dawson. My exam revealed 64-year-old female, difficulty walking with low back pain. No signs of cauda equina on MRI. Admit for further workup.
Discharge Plan
Departure
Patient Disposition: Admit
Date of Disposition: 11/16/24
Time of Disposition: 21:59
Admit to: Med/Surg
Presentation/result/management discussed w/ accepting MD/DO: Hospitalist
Condition: Fair
Discharge Problem:
Intractable low back pain, Ambulatory dysfunction, Acute urinary retention
Interventions
Interventions:
*Risk Screen - Suicide Last Done: 11/16/24 15:20
*General Assessment Last Done: 11/16/24 15:20
*Neglect/Abuse Screening Last Done: 11/16/24 15:20
ED- Fall Risk Assessment Last Done: 11/16/24 15:20
*ED COVID-19 Vaccine History Last Done: 11/16/24 15:20
*Nursing Disposition Last Done: 11/17/24 01:30
ED-Musculoskeletal Assessment Last Done: 11/16/24 15:20
Discharge Date and Time
Discharge Date/Time: 11/17/24 08:10
[2024-11-16 15:58] VITALS: BP 130/70
[2024-11-16 16:09] LABS: % Basophils 0.2 % (0-2); % Eosinophils 1.6 % (0-6); % Immature Granulocytes 0.3 % (0-0.5); % Lymphocytes 6.3 % (20.5-51.1); % Monocytes 4.2 % (1.7-9.3); % Neutrophils 87.4 % (42.2-75.2); Absolute Eosinophils 0.2 10^3/uL (0-0.7); Absolute Lymphocytes 0.6 10^3/uL (1.2-3.4); Absolute Monocytes 0.4 10^3/uL (0.1-0.6); Absolute Neutrophils 8.4 10^3/uL (1.4-6.5); Nucleated Red Blood Cells % 0 %
[2024-11-16 16:21] LABS: Erythrocyte Sed Rate 12 mm/hour (0-20)
[2024-11-16 16:21] LABS: ALT (SGPT) 14 U/L (0-35); AST (SGOT) 22 U/L (14-36); Albumin 3.6 g/dl (3.5-5.0); Alkaline Phosphatase 42 U/L (38-126); Blood Urea Nitrogen 14 mg/dl (7-17); Calcium 8.4 mg/dl (8.4-10.2); Carbon Dioxide 30 mmol/L (22-30); Chloride 94 mmol/L (98-107); Estimated Creatinine Clearance 71 ml/min; Glucose 140 mg/dl (70-99); Potassium 3.7 mmol/L (3.5-5.1); Sodium 129 mmol/L (135-145); Total Bilirubin 0.3 mg/dl (0.2-1.3); eGFR > 60.00
[2024-11-16 16:26] LABS: COVID-19 Antigen Negative (Negative)
[2024-11-16] MEDS: TORADOL 15 MG IV ×2 (16:51→20:48)
[2024-11-16 20:30] VITALS: BP 122/96
--- NOTE | 2024-11-16 22:17 | HPS.HSE ---
Family Physician
-
Family Physician: Elza Tomlinson
Chief Complaint
-
back pain right sided difficulty urinating
History of Present Illness
64-year-old female from home complaining of New onset right paraspinal pain this a.m. with inability to stand. She reports she attempted to get out of bed and fell to the floor was unable to stand due to weakness in her legs and pain. She has an
intrathecal pain pump with Dilaudid infusion on the right lower abdomen around 2 right paraspinal area at the lumbar level that was inserted on October 24, 2024 at [facility]. She also complains of chronic constipation but no bowel movement in
the last 5 days despite lactulose 10 g twice daily and senna twice daily for the last week. Typically she has a bowel movement every other day. She is also complaining of a sensation of not emptying after voiding. She had a straight cath
performed in the ER retaining 550 cc of yellow urine. When lying prone she has difficulty raising her left and right legs she can however plantar and dorsiflex when lying left side she is able to bend both legs to the knee level. She had the
symptoms during her recent admission for the past 2 days but did not mention when she was here. She denies urine incontinence or bowel incontinence, saddle anesthesia, fever, chills, chest pain, palpitations, shortness breath, cough, nausea,
vomiting, diarrhea.
The patient was admitted 11/14 to 11/15/2024 secondary to a right ureterovesicular calculus with mild right hydroureteronephrosis. She is on a chronic Dilaudid pain pump at home for her uterine cancer with metastasis to abdomen. She was seen by
urology placed on Flomax was to strain urine and follow-up with [facility] for left renal pelvic mass found on abdomen CT.
Past medical history uterine cancer status post history mets on active chemotherapy, migraine headaches, osteopenia, radiculitis epidurals 2009, peptic ulcer disease, dense breasts, endometrial cancer 2022/hysterectomy August 2023
Medical History
Past Medical History
Past Medical History: Reports Cancer (Uterine cancer status post hysterectomy) and Other
Additional Past Medical History:
Migraine headaches
Uterine Ca On active Keytruda With mets to left retroperitoneal lymphadenopathy as well as a left renal pelvis tumor or Hemorrhage with progression
4 new small lower attenuation hepatic lesions most likely a malignant metastatic disease.
osteopenia
radiculitis epidurals 2009
peptic ulcer disease
dense breasts
endometrial cancer 2022/hysterectomy August 2023
Past Surgical History: Reports Gynocological (Hysterectomy) and Other
Additional Past Surgical History:
intrathecal right sided pain pump inserted oct 24 at [facility]
Social History
Tobacco: Non-smoker
Alcohol: None
Drug: None
Personal: Single
Living: Alone
Employment: Retired
Family History
Family History: Not pertinent
Allergies / Home Medications
Allergies reflects when Allergies were last updated in [facility].
Home Medications with original date entered in [facility]
Allergy/Medication List:
Allergies
Allergy/AdvReac Type Severity Reaction Status Date / Time
Cephalosporins Allergy RED Verified 11/16/24 10:30
BLOTCHY
JEAN
codeine Allergy Nausea Verified 11/16/24 10:30
epinephrine Allergy SEVERE Verified 11/16/24 10:30
PAIN IN
NECK
penicillin G Allergy RED Verified 11/16/24 10:30
BLOTCHY
JEAN
Penicillins Allergy RED Verified 11/16/24 10:30
BLOTCHY
JEAN
Home Medications
rizatriptan 5 mg tablet 5 mg PO DAILYPRN PRN migraines 07/27/23
hydromorphone 2 mg tablet 2 mg PO Q8HPRN PRN breakthrough pain #15 tabs 08/06/23
sennosides 8.6 mg tablet (Senna Laxative) 17.2 mg (2 x 8.6 mg) PO BID #60 tabs 08/06/23
celecoxib 200 mg capsule (Celebrex) 200 mg PO BID #30 caps 06/28/24
acetaminophen 500 mg tablet (Pain Relief Extra Strength (acetaminophen)) 1,000 mg PO TIDPRN PRN mild pain 11/16/24
bisacodyl 10 mg rectal suppository (Dulcolax (bisacodyl)) 10 mg HI DAILYPRN PRN constipation 11/16/24
gabapentin 300 mg capsule 300 mg PO TID 11/16/24
lactulose 10 gram/15 mL oral solution (Constulose) 10 ml PO BID 11/16/24
lenvatinib 14 mg/day (10 mg x 1 and 4 mg x 1) capsule (Lenvima) 14 mg PO DAILY 11/16/24
levothyroxine 50 mcg tablet 50 mcg PO DAILY 11/16/24
naloxegol 25 mg tablet (Movantik) 25 mg PO DAILY 11/16/24
ondansetron HCl 4 mg tablet 4 mg PO Q8HPRN PRN nausea and vomiting 11/16/24
simethicone 80 mg chewable tablet 80 mg PO BID 11/16/24
Review of Systems
-
History Source: Patient
A 12 point ROS was completed and negative except as noted: Yes
Constitutional: Denies Fever, Fatigue or Chills
EENT: Denies Sore Throat or Runny Nose
Respiratory: Denies Cough or Trouble Breathing
Cardiac: Denies Chest Pain, Diaphoresis, Palpitations or Syncope
Abdomen/GI: Reports Abdominal Pain (chronic ) and Constipated (5 days ); Denies Nausea, Vomiting or Diarrhea
: Reports Difficulty Voiding (sense of not emptying her bladder); Denies Dysuria, Urgency or Other
Musculoskeletal: Denies Joint Pain, Joint Swelling or Edema
Skin: Denies Itching or Rash
Neurological: Reports Weakness ( When lying prone she has difficulty raising her left and right legs she can however plantar and dorsiflex when lying left side she is able to bend both legs to the knee level. ); Denies Dizzy or Headache
Endocrine: Reports No Symptoms
Hematologic/Lymphatic: Reports No Symptoms
Psych: Reports Anxiety (due to pain)
Physical Exam
Vital Signs
Vital Signs
Temp Pulse Resp BP Pulse Ox
98.1 F 83 16 130/70 97
11/16/24 15:58 11/16/24 15:58 11/16/24 15:58 11/16/24 15:58 11/16/24 15:58
Physical Exam
General: Conversant and Pain; No Fever or Chills
HEENT: NormoCephalic, Anicteric, Moist mucous membranes, PERRLA, [place] Conjunctivae and No Ptosis
Respiratory: Clear; No Wheezes, Rales or Rhonchi
Cardiac: S1/S2 and Regular Rhythm; No Murmur, Rub, Gallop or Peripheral Edema
Breast: Deferred by me
GI: Soft, Normal Bowel Sounds, Tender (generalized ) and Other (right lower abdomen intrathecal pain pump)
Musculoskeletal: No Clubbing, No Cyanosis and Other ( When lying prone she has difficulty raising her left and right legs she can however plantar and dorsiflex when lying left side she is able to bend both legs to the knee level. )
Skin: Warm, Dry and Other (pain pump insertion site dermabond still in place from oct 24 to right lower abd horizontal incision and right posterior paraspinal linear incision); No Rash
Neuro: AO x 3, No Sensory Deficits and Other (limted mvmt lower legs prone, able to bend when side lying to left ); No Slurred Speech, Facial Droop, Tremors or Sedated
Psych: Anxious (due to pain)
Laboratory Results
-
11/16/24 15:10
11/16/24 15:57
Laboratory Results
Total Bilirubin 0.3 mg/dl (0.2-1.3) 11/16/24 15:57
AST 22 U/L (14-36) 11/16/24 15:57
ALT 14 U/L (0-35) 11/16/24 15:57
Alkaline Phosphatase 42 U/L (38-126) 11/16/24 15:57
Impression/Plan
-
Impression/plan:
Observation MedSurg
#Acute Right sided lumbar back pain 2/2 Superficial Collection within the Right Paraspinal soft tissues at the L4-L5 level From Poss MALFUNCTION INTRATHECAL PAIN PUMP
versus multilevel DDD, multifocal spinal canal and neuroforaminal narrowing
#Ambulatory dysfunction secondary to right paraspinal pain
afebrile, neg wbc count
-Iv dilauid
- cont gabapentin for neuropathy to legs
-cont celebrex 200mg bid
- consult Neurosurgery
- pt/ot/ case mgmt
#Acute on chronic constipation
No BM x 5 days
- stop lactulose 10gm bid since no results
- start Miralax bid and cont senna
- cont Movantik
- milk of molasses Enema prn
#Urinary retention 2/2 to constipation
- straight cath had 550 cc of yellow urine in ER
bladder scan prrotocol
# Right ureterovesicular calculus with mild right hydroureteronephrosis 3 mm
- was recommended home Flomax and strain urine
#Uterine Ca With mets to left retroperitoneal lymphadenopathy as well as a left renal pelvis tumor or Hemorrhage with progression Dx 2022 On current immunotherapy approximately 1 year Keytruda
4 new small lower attenuation hepatic lesions most likely a malignant metastatic disease
-. Completed 7 rounds of chemotherapy in 2022
-Pt on oral Lenvima
- steel loader dilaudid inserted oct 242023
-folllows at [facility]
#Hypothyroidism
cont levothyroxine
#Migraines- none at present time
- cont rizatriptan prn
# Chronic Dry mouth.
Recommended lemon candy trial at home on recent d/c
Dvt proph
scd
Full code
--- NOTE | 2024-11-16 23:23 | W.PN.UPDATE ---
Update Note
Progress Note Update
This is an addendum to the H&P written by Corina Aaron on 11/16/2024.� Patient seen and examined independently with UI DESIGNER.
64-year-old female past medical history of uterine cancer status post hysterectomy with metastases on Keytruda, endometrial cancer, migraines, osteopenia, GERD, peptic ulcer disease, lumbar radiculitis on [employer] intrathecal pain pump, presenting for
ongoing lower back pain and new onset leg numbness and weakness and trouble urinating.
Patient had a pain pump placed last month at [facility] by neurosurgeon.� Patient has intrathecal pain pump implanted in the right lower abdomen with catheter around to the lumbar spinal cord which corresponds with the location of the pain.
She is also having constipation and associated urinary retention.
Patient was discharged yesterday after being admitted for abdominal pain and nausea and was found to have a new right 3 mm UVJ stone with mild hydroureteronephrosis.� She was recommended by urology to be sent home on Flomax.� Stone has not passed
yet as per patient.
Patient had lumbar spine MRI today which shows multilevel degenerative changes the lumbar spine slightly progressed from prior.� There is 2.8 x 0.9 cm superficial collection within the right paraspinal soft tissues at the L4-L5 level.
Concern for dysfunction of the pain pump with associated fluid collection.� IV Dilaudid for pain control at this time.� Neurosurgery consulted.�
Patient with opioid-induced constipation.� MiraLAX twice a day in place of lactulose.� Continue senna.� Continue Movantik.�Consider enema tomorrow. Bladder scan protocol.
[2024-11-16] MEDS: ZOFRAN 4 MG IV (23:40)
[2024-11-16] MEDS: DILAUDID 1 MG IV (23:41)
[2024-11-17 00:30] VITALS: BP 124/75
[2024-11-17] MEDS: DILAUDID 0.5 MG IV (02:27)
[2024-11-17] MEDS: SYNTHROID 50 MCG PO (05:36)
[2024-11-17] MEDS: DILAUDID 1 MG IV ×2 (05:37→21:23)
[2024-11-17 06:05] LABS: % Basophils 0.3 % (0-2); % Eosinophils 0.6 % (0-6); % Immature Granulocytes 0.4 % (0-0.5); % Lymphocytes 12.1 % (20.5-51.1); % Monocytes 9.4 % (1.7-9.3); % Neutrophils 77.2 % (42.2-75.2); Absolute Lymphocytes 0.8 10^3/uL (1.2-3.4); Absolute Monocytes 0.6 10^3/uL (0.1-0.6); Absolute Neutrophils 5.2 10^3/uL (1.4-6.5); Hematocrit 33.5 % (37.0-47.0); Hemoglobin 11.3 g/dL (12.0-16.0); Mean Corp Hgb Conc. 33.7 g/dL (33.0-37.0); Mean Corpuscular Hgb 29.6 pg (27.0-31.0); Mean Corpuscular Volume 87.7 fL (81.0-99.0); Mean Platelet Volume 10.2 fL (7.4-10.4); Nucleated Red Blood Cells % 0 %; Platelet Count 209 10^3/uL (130-400); Red Blood Cell Count 3.82 10^6/uL (4.20-5.40); Red Cell Dist. Width 12.8 % (11.5-14.5); White Blood Cell Count 6.8 10^3/uL (4.8-10.8)
[2024-11-17 06:28] LABS: Blood Urea Nitrogen 16 mg/dl (7-17); Calcium 9.2 mg/dl (8.4-10.2); Carbon Dioxide 28 mmol/L (22-30); Chloride 92 mmol/L (98-107); Estimated Creatinine Clearance 71 ml/min; Glucose 119 mg/dl (70-99); Potassium 4.1 mmol/L (3.5-5.1); Sodium 128 mmol/L (135-145); eGFR > 60.00
[2024-11-17 08:00] VITALS: BP 130/80
[2024-11-17] MEDS: MIRALAX 17 GRAMS PO ×2 (08:05→21:06)
[2024-11-17] MEDS: NEURONTIN 300 MG PO ×3 (08:05→21:04)
[2024-11-17] MEDS: CELEBREX 200 MG PO ×2 (08:05→21:04)
[2024-11-17] MEDS: MYLICON 80 MG PO ×2 (08:05→21:06)
[2024-11-17] MEDS: SENOKOT 17.2 MG PO ×2 (08:05→21:05)
--- NOTE | 2024-11-17 09:48 | CON.NS ---
Chief Complaint
-
LE n/t/weakness
History of Present Illness
This is a 64 yo female with hx of metastatic endometrial Ca. Who is about 3-4 weeks s/p placement of intrathecal opiate pump by a neurosurgeon at [facility]. She presented last evening with severe LBP, b/l radicular leg pain, and severe LE weakness with
urinary retention. She notes a 2-3 month hx of worsening LE n/t and progressive gait dysfunction. She had a mri of her lumbar spine completed yesterday which showed a small fluid collection at the posterior incision for her catheter. She was able to
ambulate until yesterday when she stood up and was unable to walk causing a fall to the ground.
Review of Systems
-
10 pt ROS completed and is neg except as stated
Medication and Allergies
Home Medications
Home Medications
�Medication �Instructions �Recorded
rizatriptan 5 mg tablet 5 mg PO DAILYPRN PRN migraines 07/27/23
hydromorphone 2 mg tablet 2 mg PO Q8HPRN PRN breakthrough 08/06/23
pain #15 tabs
sennosides 8.6 mg tablet (Senna 17.2 mg (2 x 8.6 mg) PO BID #60 08/06/23
Laxative) tabs
celecoxib 200 mg capsule (Celebrex) 200 mg PO BID #30 caps 06/28/24
acetaminophen 500 mg tablet (Pain 1,000 mg PO TIDPRN PRN mild pain 11/16/24
Relief Extra Strength
(acetaminophen))
bisacodyl 10 mg rectal suppository 10 mg FL DAILYPRN PRN constipation 11/16/24
(Dulcolax (bisacodyl))
gabapentin 300 mg capsule 300 mg PO TID 11/16/24
lactulose 10 gram/15 mL oral 10 ml PO BID 11/16/24
solution (Constulose)
lenvatinib 14 mg/day (10 mg x 1 14 mg PO DAILY 11/16/24
and 4 mg x 1) capsule (Lenvima)
levothyroxine 50 mcg tablet 50 mcg PO DAILY 11/16/24
naloxegol 25 mg tablet (Movantik) 25 mg PO DAILY 11/16/24
ondansetron HCl 4 mg tablet 4 mg PO Q8HPRN PRN nausea and 11/16/24
vomiting
simethicone 80 mg chewable tablet 80 mg PO BID 11/16/24
Allergies
Allergies
Allergy/AdvReac Type Severity Reaction Status Date / Time
Cephalosporins Allergy RED Verified 11/16/24 10:30
BLOTCHY
JEAN
codeine Allergy Nausea Verified 11/16/24 10:30
epinephrine Allergy SEVERE Verified 11/16/24 10:30
PAIN IN
NECK
penicillin G Allergy RED Verified 11/16/24 10:30
BLOTCHY
JEAN
Penicillins Allergy RED Verified 11/16/24 10:30
BLOTCHY
JEAN
Physical Exam
-
Exam:
UE strength 5/5
LE strength shows
0/5 HF, KE, 1/5 TA,1/5 EHL,1/5 PF
Sensory level around T12/L1
b/l LE severe hyper reflexia with 4/4 patellar reflexes and R>L 5-6 beat clonus
UE with mild b/l hoffmans
pump incisions are well healed, no leakage
MRI lumbar shows small fluid collection adjacent to catheter insertion site incision, there is L1/2 mod central stenosis mildly increased from prior MRI in 07/2023.
CT from prior admission 2 days ago shows catheter in place
Problems
-
Problem Status Onset Code
Acute urinary retention R33.8
Ambulatory dysfunction R26.2
Intractable low back pain M54.59
Assessment / Plan
-
LE weakness
-major concern for spinal cord process given exam findings and complaints: check MRI C and T with and without STAT
-place louis for urinary retention
-discussed findings with medicine team, will await MRI's
It opiate pump
-no concern for malfunction at this time
[2024-11-17 13:07] LABS: Osmolality Serum 271 mOsm/kg (275-300)
--- NOTE | 2024-11-17 13:25 | CM ---
CM met with patient's son in room. Patient off floor for test. CM confirmed demographics. Patient lives alone in a two story home. Patient confirmed that she has a cane and walker. Patient does not have a history of VN or SNF. Patient is active with
her PCP. Patient uses [facility] for medication services .
PLAN: Home no needs.
[2024-11-17 13:34] LABS: TSH 2.25 uIU/ml (0.47-4.68)
--- NOTE | 2024-11-17 14:51 | W.PN.HOSP.TC ---
Today's Communication/Plan
-
Follow-up spinal MRIs
Fluid restriction
Urine studies
PT/OT
Assessment / Plan
Assessment / Plan
Gen-AAOx3, NAD
HEENT-NC, AT, anicteric, clear oral mm
Neck-supple
CV-reg, no M, +S1/S2
Lungs-clear B/L
Abd-soft, NT, ND
Ext-no edema
Musculoskeletal-no cyanosis, clubbing
Skin-warm and dry
Neuro-bilateral lower extremity weakness
Psych-calm, cooperative
Acute paraparesis -discussed with neurosurgery, high concern for spinal process. Patient states when she was discharged from the hospital on November 15 she was able to ambulate, but yesterday developed sudden onset of lower extremity weakness.
Rule out metastases from underlying uterine cancer. Rule out infection, although does not look infected.
Cervical and thoracic spine MRI completed, report pending.
Lumbar spine MRI results noted. Neurosurgery not concerned about fluid collection. Discussed with Dr. Meyer.
Acute urinary retention -Alfred catheter placed. Concern for neurogenic bladder related to spinal process given lower extremity weakness.
Stage IV uterine cancer -s/p hysterectomy last year, on chemotherapy under the guidance of Dr. Del Angel and [facility]. Currently on Keytruda
Hyponatremia -suspect SIADH due to malignancy, pain. Low serum osmolality noted, check urine studies. Fluid restriction. Looks euvolemic. TSH and random cortisol in expected range.
Chronic pain syndrome/chronic opiate dependence -malignancy associated pain. Has intrathecal pain pump in place, placed earlier this month in [facility].
Hypothyroidism -levothyroxine.
Osteopenia
Migraine headaches -as needed rizatriptan.
GERD
Peptic ulcer disease
Nephrolithiasis -3 mm right UVJ stone with mild hydroureteronephrosis. Should pass on its own. Seen by urology this week.
Full code
Patient's son updated at the bedside.
Anticipated Discharge: > 48 hours
Subjective/Interval History
-
Date of Service: November 17, 2024
Patient seen and examined. Complaining of numbness and tingling from her lumbar spine down both legs, lower extremity weakness.
Objective Data
-
Labs:
Laboratory Results
11/17/24
05:45
WBC 6.8
Hgb 11.3 L
Hct 33.5 L
Plt Count 209
Sodium 128 L
Potassium 4.1
Chloride 92 L
Carbon Dioxide 28
BUN 16
Creatinine 0.5 L
Glucose 119 H
Calcium 9.2
Vital Signs:
Vital Signs
Temp Pulse Resp BP Pulse Ox
98.6 F 91 14 130/80 95
11/17/24 08:00 11/17/24 08:00 11/17/24 08:00 11/17/24 08:00 11/17/24 08:00
I&O
11/16/24 11/17/24 11/18/24
06:59 06:59 06:59
Intake Total 240 / 240
Output Total 350 / 350
Balance -110 / -110
Review of Systems
-
History Source: Patient
All other systems: Reviewed and negative
[2024-11-17 14:54] LABS: Osmolality Urine 697 mOsm/kg (300-900)
[2024-11-17 15:05] LABS: Urine Sodium 65 mmol/L (30-90)
[2024-11-17 15:54] VITALS: BP 151/81
--- NOTE | 2024-11-17 20:31 | W.PN.UPDATE ---
Update Note
Progress Note Update
I have reviewed her MRI C and T spines. There is no compressive issue in her thoracic spine to explain her symptoms. IN her cervical spine she has multi level stenosis with the worse being at C4/5 where she has severe central stenosis but no
abnormal spinal cord signal.
Official reads are pending at this time.
Rec for MRI brain with and without to look further for a possible central process.
Neurology consult as well
case d/w Dr. Mayberry and Dr. Castro
[2024-11-17 23:20] VITALS: BP 132/76
[2024-11-18] VITALS (8 sets, daily range): BP systolic 77–150; BP diastolic 76–83; PULSE 77; O2SAT 98
[2024-11-18] MEDS: DILAUDID 1 MG IV (03:53)
[2024-11-18] MEDS: SYNTHROID 50 MCG PO (04:00)
[2024-11-18 07:19] LABS: % Basophils 0.3 % (0-2); % Eosinophils 0.4 % (0-6); % Immature Granulocytes 0.3 % (0-0.5); % Lymphocytes 10.5 % (20.5-51.1); % Monocytes 7.4 % (1.7-9.3); % Neutrophils 81.1 % (42.2-75.2); Absolute Lymphocytes 0.8 10^3/uL (1.2-3.4); Absolute Monocytes 0.5 10^3/uL (0.1-0.6); Absolute Neutrophils 5.9 10^3/uL (1.4-6.5); Hematocrit 33.6 % (37.0-47.0); Hemoglobin 11.2 g/dL (12.0-16.0); Mean Corp Hgb Conc. 33.3 g/dL (33.0-37.0); Mean Corpuscular Hgb 29.2 pg (27.0-31.0); Mean Corpuscular Volume 87.7 fL (81.0-99.0); Mean Platelet Volume 10.9 fL (7.4-10.4); Nucleated Red Blood Cells % 0 %; Platelet Count 187 10^3/uL (130-400); Red Blood Cell Count 3.83 10^6/uL (4.20-5.40); Red Cell Dist. Width 12.8 % (11.5-14.5); White Blood Cell Count 7.3 10^3/uL (4.8-10.8)
[2024-11-18 07:56] LABS: Blood Urea Nitrogen 17 mg/dl (7-17); Calcium 8.9 mg/dl (8.4-10.2); Carbon Dioxide 29 mmol/L (22-30); Chloride 90 mmol/L (98-107); Estimated Creatinine Clearance 71 ml/min; Glucose 115 mg/dl (70-99); Potassium 4.1 mmol/L (3.5-5.1); Sodium 126 mmol/L (135-145); eGFR > 60.00
[2024-11-18] MEDS: NEURONTIN 300 MG PO ×2 (08:24→16:21)
[2024-11-18] MEDS: MYLICON 80 MG PO ×2 (08:24→19:18)
[2024-11-18] MEDS: SENOKOT 17.2 MG PO ×2 (08:24→19:18)
[2024-11-18] MEDS: CELEBREX 200 MG PO ×2 (08:24→19:18)
[2024-11-18] MEDS: MIRALAX 17 GRAMS PO ×2 (08:25→19:18)
--- NOTE | 2024-11-18 09:03 | CON.NEURO ---
Neuro Assessment/Plan
Assessment
Cervical spine MRI with and without contrast was unremarkable
Thoracic spine MRI with and without contrast suggested 'thin linear enhancement along the distal thoracic cord and conus medullaris are likely vascular in nature, less likely commercial sales representative of leptomeningeal disease in the setting of known
malignancy or infectious/inflammatory process'
MRI of the lumbar spine with and without contrast suggested linear enhancement along the conus medullary
Acute onset gait dysfunction with abnormal MRI of the thoracic and lumbar spines
Exam is overall suggestive of a central, not peripheral process.
Most likely etiology either is a paraneoplastic disorder associated with the patient's known endometrial carcinoma with metastasis, potentially associated with leptomeningeal extension
or dysfunction secondary to adverse effect of pembrolizumab producing proximal slightly greater than distal weakness in lower extremities.
At this time it does not appear that the patient's pain pump is related to symptomatology.
Plan
Check lumbar puncture, appreciate interventional radiology consultation for assistance
Initiate high-dose steroids after lumbar puncture in hopes of reducing possible inflammatory process
Consider plasma exchange based on test results
Check MRI of brain with and without contrast for completeness to determine if there are metastatic changes
Would at this time continue use of lenvatinib
Consider consultation for hematology oncology
Rehabilitation evaluations including speech therapy due to the patient's self-reported intermittent difficulty with swallowing
Consultation
Order
Date of Consultation: 11/18/24
Requesting Provider:
Reason for Consult:
Subjective/Objective
Subjective Data
Date of Service: November 18, 2024
Right-Handed
Patient has had numerous presentation to this hospital's emergency department with abdominal pain or back pain.
Tingling in legs started on 11/12/2024 without weakness going down the right leg, not left. Left leg pain has been ongoing for the past 4 months (06/2024) which led to pain-pump placement in thigh, improved with pain-pump use with ability to sit up.
The patient's most recent emergency department presentations were on November 14 and then on the 2023. On November 14, the patient reported having had a recent discharge from [place] where she was undergoing chemotherapy due to known
endometrial carcinoma with metastasis. On that presentation the patient was found to have a utero vesicular junction calculus with mild right hydronephrosis and was discharged.
The patient was subsequently readmitted to this hospital on November 16, 2024 due to tingling in the legs followed by numbness and weakness.
By records, the patient had sudden onset of inability to climb out of bed and fell to the floor.
Prior chemotherapy has included pembrolizumab and lenvatinib. Last dosing of both was 06/2024.
Neurosurgery was consulted during this hospitalization.
Pain pump placed in 10/24/2024
Of note is that the patient has a longstanding history of migraine for which she utilized either aspirin, rizatriptan as rescue medications and for prevention was utilizing coenzyme Q 10 and magnesium.
Objective Data
Vital Signs
Temp Pulse Resp BP Pulse Ox
36.6 C 86 18 150/83 97
11/18/24 07:06 11/18/24 07:06 11/18/24 07:06 11/18/24 07:06 11/18/24 07:06
Lab Results
11/18/24 06:40
11/18/24 06:40
Sodium 126 mmol/L (135-145) L 11/18/24 06:40
Potassium 4.1 mmol/L (3.5-5.1) 11/18/24 06:40
BUN 17 mg/dl (7-17) 11/18/24 06:40
Glucose 115 mg/dl (70-99) H 11/18/24 06:40
Calcium 8.9 mg/dl (8.4-10.2) 11/18/24 06:40
Patient Allergies
Cephalosporins Allergy (Verified 11/16/24 10:30)
RED BLOTCHY JEAN
codeine Allergy (Verified 11/16/24 10:30)
Nausea
epinephrine Allergy (Verified 11/16/24 10:30)
SEVERE PAIN IN NECK
penicillin G Allergy (Verified 11/16/24 10:30)
RED BLOTCHY JEAN
Penicillins Allergy (Verified 11/16/24 10:30)
RED BLOTCHY JEAN
Review of Systems
-
History Source: Patient
All other systems: Reviewed and negative
EENT: Negative Swallowing Difficulty
Respiratory: Negative Trouble Breathing
Cardiac: Negative Chest Pain
Abdomen/GI: Negative Incontinence of Stool
Genitourinary: Negative Incontinence
Musculoskeletal: Back Pain and Neck Pain
Neuro: Negative Dizzy or Headache
Physical Exam
-
General: No Apparent Distress and Appears Stated Age
Eyes: OU Absent Papilledema, Able to visualize OU, Round OU, [place] Conjunctivae and No Ptosis
HEENT: Anicteric and Moist Mucous Membranes
Neck: Full Range of Motion
Respiratory: No Dyspnea
Cardiac: No JVD
GI: Non-distended
Skin: Unremarkable
Extremities: No Clubbing, No Cyanosis and No Edema
Psych: Negative Intact Judgement/Insight
Extended Neurological Exam
Mood & Affect: Mood Unremarkable and Affect Unremarkable
Attention Span & Concentration: Awake, Alert, Interactive, Mild Difficulty with 2 Step Request and Other (Mildly slow with statements and inconsistencies according to the patient's sister who was available by phone)
Memory: Unremarkable
Tremor: Hand Tremor Absent and Head Tremor Absent
Speech: Quality Unremarkable and Quantity Unremarkable
Cranial Nerve II: Left Eye: Pupillary Reactivity Unremarkable, Pupillary Size Unremarkable and Visual Sullivan Intact
Cranial Nerve II: Right Eye: Pupillary Reactivity Unremarkable, Pupillary Size Unremarkable and Visual Sullivan Intact
Cranial Nerves III, IV, : Extraocular Movement: Extraocular Movement Full in all Directions
Cranial Nerve VII: Facial Symmetry: Normal Facial Symmetry
Cranial Nerve VIII: Hearing: Unremarkable Hearing to Normal Conversational Volume
Cranial Nerves IX, X: Palate Movement: Palate Elevation Symmetric
Cranial Nerve XI: Shoulder Shrug: Unremarkable
Cranial Nerve XII: Tongue Protusion: Midline
Muscle Strength, Overall: Other (Trace in bilateral lower extremities proximally and 3 out of 5 distal lower extremity strength)
Muscle Bulk & Tone: Bulk Unremarkable and Tone Unremarkable
Pronator Drift: No Drift in Upper Extremities
Deep Tendon Reflexes: Clonus (2 beats at bilateral ankles), 3+ (Right patella) and Otherwise Unremarkable
Touch Sensation: Pin Prick Reduced (In length-dependent fashion)
Coordination: [id number] Testing Unremarkable
Babinski Sign: Absent Bilaterally
Gait & Station: Unable to Assess
Data Reviewed
-
MRI Head: Ordered
MRI Cervical Spine: Report Reviewed
MRI Thoracic Spine: Report Reviewed and Image Reviewed
MRI Lumbar Spine: Report Reviewed and Image Reviewed
Labs: Ordered and Report Reviewed
Reviewed with: Physician, Nurse, Patient and Family (Via phone)
Old Records: Summarized
Medications
-
Active Medications
Generic Name Dose Route Start Last Admin
Trade Name Freq PRN Reason Stop Dose Admin
Acetaminophen 1,000 mg 11/16/24 23:23
Acetaminophen 500 Mg Tablet PO 12/14/24 23:22
TIDPRN PRN
mild pain
Bisacodyl 10 mg 11/17/24 01:41
Bisacodyl 10 Mg Rectal Suppository RECTAL 12/15/24 01:40
DAILYPRN PRN
constipation
Celecoxib 200 mg 11/17/24 08:00 11/18/24 08:24
Celecoxib 200 Mg Capsule PO 12/15/24 07:59 200 mg
BID DYANA Administration
Gabapentin 300 mg 11/17/24 08:00 11/18/24 08:24
Gabapentin 300 Mg Capsule PO 12/15/24 07:59 300 mg
TID DYANA Administration
Hydromorphone HCl 1 mg 11/17/24 04:00 11/18/24 03:53
Hydromorphone 1 Mg/Ml Carpuject IV 12/01/24 03:59 1 mg
Q4HPRN PRN Administration
mod pain
Levothyroxine Sodium 50 mcg 11/17/24 06:00 11/18/24 04:00
Levothyroxine 50 Mcg Tablet PO 12/15/24 05:59 50 mcg
DAILY@0600 DYANA Administration
Non-Formulary Medication 25 mg 11/17/24 08:00
Naloxegol [Movantik] PO 12/15/24 07:59
DAILY DYANA
Ondansetron HCl 4 mg 11/16/24 23:23 11/16/24 23:40
Ondansetron 4 Mg/2 Ml Vial IV 12/14/24 23:22 4 mg
Q6HPRN PRN Administration
nausea and vomiting
Polyethylene Glycol 17 grams 11/17/24 08:00 11/18/24 08:25
Polyethylene Glycol Powder 17 Grams Packet PO 12/15/24 07:59 17 grams
BID DYANA Administration
Rizatriptan Benzoate 5 mg 11/17/24 03:51
Rizatriptan 10 Mg (Orally Disintegrating) Tablet PO 12/15/24 03:50
DAILYPRN PRN
migraines
Sennosides 17.2 mg 11/17/24 08:00 11/18/24 08:24
Sennosides (Senokot) 8.6 Mg Tablet PO 12/15/24 07:59 17.2 mg
BID DYANA Administration
Simethicone 80 mg 11/17/24 08:00 11/18/24 08:24
Simethicone 80 Mg Chewable Tablet PO 12/15/24 07:59 80 mg
BID DYANA Administration
Sodium Chloride 0 flush 11/17/24 02:00
Sodium Chloride 0.9% (Flush) Syringe IV 12/15/24 01:59
PER PROTOCOL DYANA
Home Medications
�Medication �Instructions �Recorded
rizatriptan 5 mg tablet 5 mg PO DAILYPRN PRN migraines 07/27/23
hydromorphone 2 mg tablet 2 mg PO Q8HPRN PRN breakthrough 08/06/23
pain #15 tabs
sennosides 8.6 mg tablet (Senna 17.2 mg (2 x 8.6 mg) PO BID #60 08/06/23
Laxative) tabs
celecoxib 200 mg capsule (Celebrex) 200 mg PO BID #30 caps 06/28/24
acetaminophen 500 mg tablet (Pain 1,000 mg PO TIDPRN PRN mild pain 11/16/24
Relief Extra Strength
(acetaminophen))
bisacodyl 10 mg rectal suppository 10 mg SD DAILYPRN PRN constipation 11/16/24
(Dulcolax (bisacodyl))
gabapentin 300 mg capsule 300 mg PO TID 11/16/24
lactulose 10 gram/15 mL oral 10 ml PO BID 11/16/24
solution (Constulose)
lenvatinib 14 mg/day (10 mg x 1 14 mg PO DAILY 11/16/24
and 4 mg x 1) capsule (Lenvima)
levothyroxine 50 mcg tablet 50 mcg PO DAILY 11/16/24
naloxegol 25 mg tablet (Movantik) 25 mg PO DAILY 11/16/24
ondansetron HCl 4 mg tablet 4 mg PO Q8HPRN PRN nausea and 11/16/24
vomiting
simethicone 80 mg chewable tablet 80 mg PO BID 11/16/24
Past History
Past History
ED Past Medical History: Cancer (Endometrial cancer 2022), GERD, Hypothyroidism and Other (Chronic low back pain, nephrolithiasis, migraine, osteopenia, radiculitis requiring epidural steroids in 2009)
ED Past Surgical History: Gynecological (Hysterectomy), Orthopedic (right Knee surgery, Foot surgery left, left knee arthroscopy) and Other (Inguinal lymph nodes removed 2022, intrathecal pain pump October 2024)
Social History
Tobacco: Non-smoker
Alcohol: None (Beer 1-2 for a year)
Personal:
Living: alone
Family History
Family History: Other (Reviewed and noncontributory)
[2024-11-18 10:27] LABS: Erythrocyte Sed Rate 11 mm/hour (0-20)
[2024-11-18 11:19] LABS: Ferritin 39.8 ng/ml (11.1-264.0)
[2024-11-18 11:28] LABS: INR 0.94
[2024-11-18 11:50] LABS: Folate 8.1 ng/ml (2.76-20); Vitamin B12 863 pg/ml (239-931)
[2024-11-18] MEDS: ATIVAN 1 MG PO (12:00)
--- NOTE | 2024-11-18 12:02 | W.PN.HOSP.TC ---
Addendum entered and electronically signed by Adrián Mayberry DO 11/18/24 12:22:
I spoke with on-call oncology at [facility], Dr. Jiménez, and she will fax records to us regarding her cancer care.
Her cell phone number is [phone].
Original Note:
Today's Communication/Plan
-
Await lumbar puncture
Assessment / Plan
Assessment / Plan
Gen-AAOx3, NAD
HEENT-NC, AT, anicteric, clear oral mm
Neck-supple
CV-reg, no M, +S1/S2
Lungs-clear B/L
Abd-soft, NT, ND
Ext-no edema
Musculoskeletal-no cyanosis, clubbing
Skin-warm and dry
Neuro-bilateral lower extremity weakness, downgoing toes
Psych-calm, cooperative
Acute paraparesis -discussed with neurosurgery, high concern for spinal process. Patient states when she was discharged from the hospital on November 15 she was able to ambulate, but yesterday developed sudden onset of lower extremity weakness.
Rule out metastases from underlying uterine cancer. Rule out infection, although does not look infected.
Complete spinal MRI completed.
IR consult for lumbar puncture as per neurology recommendation. Rule out leptomeningeal disease related to malignancy versus other causes. Start steroids per neurology.
Brain MRI pending.
Acute urinary retention -Alfred catheter placed. Concern for neurogenic bladder related to spinal process given lower extremity weakness.
Stage IV uterine cancer -s/p hysterectomy last year, on chemotherapy under the guidance of Dr. Del Angel and [facility]. Currently on Keytruda
Hyponatremia -suspect SIADH due to malignancy, pain. Low serum osmolality noted, check urine studies. Fluid restriction. Looks euvolemic. TSH and random cortisol in expected range. Given drop in sodium will consult nephrology. Hold lenvatinib,
as it can cause hyponatremia. Discussed with patient.
Chronic pain syndrome/chronic opiate dependence -malignancy associated pain. Has intrathecal pain pump in place, placed earlier this month in [facility].
Hypothyroidism -levothyroxine.
Osteopenia
Migraine headaches -as needed rizatriptan.
GERD
Peptic ulcer disease
Nephrolithiasis -3 mm right UVJ stone with mild hydroureteronephrosis. Should pass on its own. Seen by urology this week.
Full code
Patient's son updated at the bedside.
I placed a call at the patient's request to patient's oncologist at [facility], Dr. Prateek Del Angel, to call me back.
Anticipated Discharge: > 48 hours
Subjective/Interval History
-
Date of Service: November 18, 2024
Patient seen and examined. No change in her lower extremity weakness, paresthesias.
Objective Data
-
Labs:
Laboratory Results
11/18/24 11/18/24
06:40 10:58
WBC 7.3
Hgb 11.2 L
Hct 33.6 L
Plt Count 187
PT 13.0
INR 0.94
Sodium 126 L
Potassium 4.1
Chloride 90 L
Carbon Dioxide 29
BUN 17
Creatinine 0.6
Glucose 115 H
Calcium 8.9
Vital Signs:
Vital Signs
Temp Pulse Resp BP Pulse Ox
97.8 F 86 18 150/83 97
11/18/24 07:06 11/18/24 07:06 11/18/24 07:06 11/18/24 07:06 11/18/24 07:06
I&O
11/17/24 11/18/24 11/19/24
06:59 06:59 06:59
Intake Total 480 / 480
Output Total 800 / 800
Balance -320 / -320
Review of Systems
-
History Source: Patient
All other systems: Reviewed and negative
--- NOTE | 2024-11-18 14:00 | W.CON.NEPH ---
Consultation
-
Date/Time Consultation Requested: 11/18/2024 12 PM
Date/Time Consultation Performed: 11/18/2024 2 PM
Requesting Provider: Dr. Mayberry
Performing Provider: Dr. Eli
Reason for Consultation: Hyponatremia
Medical History
-
Chief Complaint: Right-sided pain
History of Present Illness:
64-year-old female with new onset right paraspinal pain with inability to stand. She reports she attempted to get out of bed and fell to the floor was unable to stand due to weakness in her legs and pain. She has an intrathecal pain pump with
Dilaudid infusion on the right lower abdomen around 2 right paraspinal area at the lumbar level that was inserted on October 24, 2024 at [facility]. She also complains of chronic constipation but no bowel movement in the last 5 days despite
lactulose 10 g twice daily and senna twice daily for the last week. Typically she has a bowel movement every other day. She is also complaining of a sensation of not emptying after voiding. She had a straight cath performed in the ER retaining
550 cc of yellow urine. Alfred catheter was placed. When lying prone she has difficulty raising her left and right legs she can however plantar and dorsiflex when lying left side she is able to bend both legs to the knee level. She had the symptoms
during her recent admission for the past 2 days but did not mention when she was here. She denies urine incontinence or bowel incontinence, saddle anesthesia, fever, chills, chest pain, palpitations, shortness breath, cough, nausea, vomiting,
diarrhea. Sodium on admission was noted to be 128 and has now fallen to 126.
The patient was admitted 11/14 to 11/15/2024 secondary to a right ureterovesicular calculus with mild right hydroureteronephrosis. She is on a chronic Dilaudid pain pump at home for her uterine cancer with metastasis to abdomen. She was seen by
urology placed on Flomax was to strain urine and follow-up with [facility] for left renal pelvic mass found on abdomen CT.
Past Medical History
Uterine cancer status post hysterectomy
Migraine headaches
Uterine Ca On active Keytruda With mets to left retroperitoneal lymphadenopathy as well as a left renal pelvis tumor or Hemorrhage with progression
4 new small lower attenuation hepatic lesions most likely a malignant metastatic disease.
osteopenia
radiculitis epidurals 2009
peptic ulcer disease
dense breasts
endometrial cancer 2022/hysterectomy August 2023
intrathecal right sided pain pump inserted oct 24 at [facility]
Social History
Tobacco: Non-Smoker
Alcohol: None
Family History
Family History: Not Pertinent
Allergies / Home Medications
Allergy/AdvReac Type Severity Reaction Status Date / Time
Cephalosporins Allergy RED Verified 11/16/24 10:30
BLOTCHY
JEAN
codeine Allergy Nausea Verified 11/16/24 10:30
epinephrine Allergy SEVERE Verified 11/16/24 10:30
PAIN IN
NECK
penicillin G Allergy RED Verified 11/16/24 10:30
BLOTCHY
JEAN
Penicillins Allergy RED Verified 11/16/24 10:30
BLOTCHY
JEAN
�Medication �Instructions �Recorded �Confirmed �Type
rizatriptan 5 mg tablet 5 mg PO DAILYPRN PRN migraines 07/27/23 11/16/24 History
hydromorphone 2 mg tablet 2 mg PO Q8HPRN PRN breakthrough 08/06/23 11/16/24 Rx
pain #15 tabs
sennosides 8.6 mg tablet (Senna 17.2 mg (2 x 8.6 mg) PO BID #60 08/06/23 11/16/24 Rx
Laxative) tabs
celecoxib 200 mg capsule (Celebrex) 200 mg PO BID #30 caps 06/28/24 11/16/24 Rx
acetaminophen 500 mg tablet (Pain 1,000 mg PO TIDPRN PRN mild pain 11/16/24 11/16/24 History
Relief Extra Strength
(acetaminophen))
bisacodyl 10 mg rectal suppository 10 mg WI DAILYPRN PRN constipation 11/16/24 11/16/24 History
(Dulcolax (bisacodyl))
gabapentin 300 mg capsule 300 mg PO TID 11/16/24 11/16/24 History
lactulose 10 gram/15 mL oral 10 ml PO BID 11/16/24 11/16/24 History
solution (Constulose)
lenvatinib 14 mg/day (10 mg x 1 14 mg PO DAILY 11/16/24 11/16/24 History
and 4 mg x 1) capsule (Lenvima)
levothyroxine 50 mcg tablet 50 mcg PO DAILY 11/16/24 11/16/24 History
naloxegol 25 mg tablet (Movantik) 25 mg PO DAILY 11/16/24 11/16/24 History
ondansetron HCl 4 mg tablet 4 mg PO Q8HPRN PRN nausea and 11/16/24 11/16/24 History
vomiting
simethicone 80 mg chewable tablet 80 mg PO BID 11/16/24 11/16/24 History
Review of Systems
-
Constipation, pain as above
All other systems: Negative unless noted
Physical Exam
Vital Signs
Vital Signs
Temp Pulse Resp BP Pulse Ox
97.9 F 77 16 134/81 97
11/18/24 12:10 11/18/24 12:10 11/18/24 12:10 11/18/24 12:10 11/18/24 12:10
Lab Results
WBC 7.3 10^3/uL (4.8-10.8) 11/18/24 06:40
RBC 3.83 10^6/uL (4.20-5.40) L 11/18/24 06:40
Hgb 11.2 g/dL (12.0-16.0) L 11/18/24 06:40
Hct 33.6 % (37.0-47.0) L 11/18/24 06:40
Plt Count 187 10^3/uL (130-400) 11/18/24 06:40
Sodium 126 mmol/L (135-145) L 11/18/24 06:40
Potassium 4.1 mmol/L (3.5-5.1) 11/18/24 06:40
Chloride 90 mmol/L (98-107) L 11/18/24 06:40
Carbon Dioxide 29 mmol/L (22-30) 11/18/24 06:40
BUN 17 mg/dl (7-17) 11/18/24 06:40
Creatinine 0.6 mg/dL (0.6-1.0) 11/18/24 06:40
eGFR > 60.00 11/18/24 06:40
Glucose 115 mg/dl (70-99) H 11/18/24 06:40
Calcium 8.9 mg/dl (8.4-10.2) 11/18/24 06:40
Albumin 3.6 g/dl (3.5-5.0) 11/16/24 15:57
Laboratory Tests
06/28/24 11/17/24
16:39 14:35
Sodium 135
Urine Osmolality 697
Urine Sodium 65
CT abdomen pelvis with contrast on November 14, 2024
IMPRESSION:
Approximate 3 mm calculus at the right ureterovesical junction with mild right hydroureteronephrosis and delayed right sided renal excretion.
Small simple right lobe hepatic cysts.
At least four new small low-attenuation hepatic lesions most likely not representing cysts, at least suspicious for malignancy/metastatic disease.
Slightly high attenuation density in the left renal pelvis, most likely differential diagnostic possibilities would be hemorrhage or tumor. Slight progression of left retroperitoneal lymphadenopathy resulting in possible minimal partial left sided
obstructive uropathy.
Cannot exclude mild diffuse gallbladder wall thickening.
Subcentimeter low-attenuation left lobe hepatic lesion, too small to characterize.
Physical Exam
Patient is awake alert oriented and in no distress. Mood and affect were pleasant, insight and judgment were good. Pupils are equal round and reactive to light, extraocular movements are intact, sclera were anicteric. Hearing was normal, ears and
nose are intact. Oropharynx was clear. Neck was supple with trachea midline and no thyromegaly. Heart was regular rate and rhythm without rubs. Lower extremities with 1+ edema. Lungs were clear to auscultation bilaterally and with normal
excursion. Abdomen was soft, nontender, with normal active bowel sounds, and no hepatosplenomegaly. Skin was without rash and with normal turgor.
Data Reviewed
-
CT Scan: Report Reviewed by me
Ultrasound: Image Personally Visualized and interpreted (EKG on 11/14/2024 by my read shows normal sinus rhythm nonspecific ST T wave abnormalities, ST depression anterior)
MRI: Report Reviewed by me
Labs: Labs Reviewed by me
Old Records: Reviewed
Assessment/Plan
-
Assessment
Right sided back pain
Constipation
Right hydronephrosis
Kidney stone nonobstructive
Hyponatremia
Metastatic uterine cancer
Hypothyroidism
Chronic pain, intrathecal pain pump
Plan
Clinical picture suggests excess ADH, likely due to pain, NSAIDs, pain control medicines
Fluid restriction 40 ounces per day
Samsca
Would hold NSAIDs if possible but this may not be possible given her pain
Follow BMP
[2024-11-18] MEDS: SAMSCA 15 MG PO (14:27)
[2024-11-18] MEDS: SOLU-MEDROL 258 MG IV (14:28)
[2024-11-18] MEDS: VITAMIN B1 100 MG PO (14:28)
[2024-11-18 15:08] LABS: Spinal Fluid Glucose 40 mg/dl (40-70)
[2024-11-18 15:17] LABS: Spinal Fluid Protein > 600 mg/dl (12-60)
--- NOTE | 2024-11-18 15:18 | PTOTSP ---
Speech Pathology Evaluation
64F with admission for right sided back pain p/w mild to moderate cognitive communication impairment characterized by impairments related to executive functioning, recall, attention, and verbal fluency.
Recommend:
1. Cognitive communication tx at the acute care level related to executive functioning, recall, attention, and verbal fluency.
[2024-11-18 15:56] LABS: CSF Color Xanthochromic; CSF Tube # 3
[2024-11-18 15:57] LABS: CSF Clarity Clear; Red Cell Count/CSF 31 mm^3
[2024-11-18 15:58] LABS: Spinal Fluid Lymphocytes 96 %; Spinal Fluid Macrophages 4 %
[2024-11-18 16:01] LABS: White Cell Count/CSF 354 mm^3 (0-5)
[2024-11-18 16:02] LABS: CSF Color Xanthochromic; CSF Granulocytes 1 %; CSF Lymphocytes 96 %; CSF Tube # 4; CSF Tube # Clarity Clear; Red Cell Count/CSF 34 mm^3; Spinal Fluid Macrophages 3 %; White Blood Cell Count/CSF 380 mm^3 (0-5)
[2024-11-18] MEDS: DULCOLAX 10 MG RECTAL (19:05)
[2024-11-18] MEDS: PEPCID PO (21:11)
[2024-11-18] MEDS: NEURONTIN PO (21:11)
--- NOTE | 2024-11-18 21:11 | PTCARENOTE ---
Pt became more lethargic and drowsy. General weakness. AAOx2 forgetful at time. Verbally arousable. No c/o pain. will cont w/ tx plan. No BM.
[2024-11-19] MEDS: SYNTHROID 50 MCG PO (05:16)
[2024-11-19 05:21] LABS: % Immature Granulocytes 0.4 % (0-0.5); % Lymphocytes 6.9 % (20.5-51.1); % Monocytes 1.3 % (1.7-9.3); % Neutrophils 91.4 % (42.2-75.2); Absolute Lymphocytes 0.3 10^3/uL (1.2-3.4); Absolute Monocytes 0.1 10^3/uL (0.1-0.6); Absolute Neutrophils 4.1 10^3/uL (1.4-6.5); Hematocrit 35.6 % (37.0-47.0); Hemoglobin 11.7 g/dL (12.0-16.0); Mean Corp Hgb Conc. 32.9 g/dL (33.0-37.0); Mean Corpuscular Hgb 29.5 pg (27.0-31.0); Mean Corpuscular Volume 89.9 fL (81.0-99.0); Mean Platelet Volume 10.8 fL (7.4-10.4); Nucleated Red Blood Cells % 0 %; Platelet Count 204 10^3/uL (130-400); Red Blood Cell Count 3.96 10^6/uL (4.20-5.40); Red Cell Dist. Width 12.6 % (11.5-14.5); White Blood Cell Count 4.5 10^3/uL (4.8-10.8)
[2024-11-19 05:51] LABS: Blood Urea Nitrogen 22 mg/dl (7-17); Calcium 9.7 mg/dl (8.4-10.2); Carbon Dioxide 32 mmol/L (22-30); Chloride 95 mmol/L (98-107); Estimated Creatinine Clearance 60 ml/min; Glucose 191 mg/dl (70-99); Potassium 4.4 mmol/L (3.5-5.1); Sodium 136 mmol/L (135-145); eGFR > 60.00
--- NOTE | 2024-11-19 07:22 | W.PN.HOSP.TC ---
Today's Communication/Plan
-
Continue IV steroids, follow lumbar puncture results
Treatment for constipation, may need an enema, mag citrate given today
Assessment / Plan
Assessment / Plan
Physical Exam
Gen-AAOx3, NAD
HEENT-NC, AT
Neck-supple
CV-reg, no M, +S1/S2
Lungs-clear B/L
Abd-soft, NT, ND
Ext-no edema
Musculoskeletal-no cyanosis, clubbing
Skin-warm and dry
Neuro-AAOx3. 5/5 Strength in the bilateral upper extremities. bilateral lower extremities with 2/5 strength. Impaired sensation from abdomen to lower extremities.
Psych-calm, cooperative
Assessment/Plan
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 adverse effect of pembrolizumab vs. side effect of epidural bupivacaine
Recent intrathecal pain pump inserted several weeks ago (for cancer-related pain, status post intrathecal pump placement 10/24/24, managed by Drs. Nunez and Caleb)
-Dr. Mayberry discussed with neurosurgery, high concern for spinal process. Patient states when she was discharged from the hospital on November 15, 2024 she was able to ambulate, but 11/16/24 developed sudden onset of lower extremity weakness.
-No evidence of transverse myelitis on MRI
-Continue Solumedrol steroids 1g 2/5 -- empiric therapy in case this is a immune-mediated process
-Hem/onc, neurology to consider plasmapheresis
-IR consult for lumbar puncture: LP performed, and initial studies show CSF WBC 380, protein >600, glucose 40, RBC 34
-Brain MRI with no metastases
-Per neurosurgery, not findings in MRI C and T spines that could explain patient's symptoms
Constipation
-Bowel regimen: MiraLAX twice a day in place of lactulose, senna, Movantik.
-In addition, Mag Citrate on 11/19/24 since BM yet
-May need another enema
Acute urinary retention
-Could be related, at least partly, to constipation and partly to central nervous system process
-Alfred catheter placed. Concern for neurogenic bladder related to spinal process given lower extremity weakness.
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
-s/p hysterectomy last year, on chemotherapy under the guidance of Dr. Del Angel and [facility]. Currently on Keytruda
-Continue lenvatinib
Left renal pelvis tumor versus hemorrhage
Hyponatremia -suspect SIADH due to malignancy, pain. Continue PO fluid restriction. Looks euvolemic. Nephrology already involved in the case. Hold lenvatinib, as it can cause hyponatremia. Samsca.
Chronic pain syndrome/chronic opiate dependence -malignancy associated pain. Has intrathecal pain pump in place, placed earlier this month in [facility].
Hypothyroidism -levothyroxine.
Osteopenia
Migraine headaches -as needed rizatriptan.
GERD
Peptic ulcer disease
Nephrolithiasis -3 mm right UVJ stone with mild hydroureteronephrosis. Should pass on its own. Continue Flomax. Seen by urology this week.
Full code
I updated patient's son at the bedside.
Anticipated Discharge: > 48 hours
Subjective/Interval History
-
Date of Service: November 19, 2024
Patient was seen and examined. She reported continued numbness in her mid to lower abdomen, as well as weakness in her lower extremities bilaterally.
Objective Data
-
Labs:
Laboratory Results
11/19/24
04:29
WBC 4.5 L
Hgb 11.7 L
Hct 35.6 L
Plt Count 204
Sodium 136 D
Potassium 4.4
Chloride 95 L
Carbon Dioxide 32 H
BUN 22 H
Creatinine 0.7
Glucose 191 H
Calcium 9.7
Vital Signs:
Vital Signs
Temp Pulse Resp BP Pulse Ox
97.7 F 69 16 142/80 97
11/18/24 23:33 11/18/24 23:33 11/18/24 23:33 11/18/24 23:33 11/18/24 23:33
I&O
11/18/24 11/19/24 11/20/24
06:59 06:59 06:59
Intake Total 480 / 480 960 / 960
Output Total 800 / 800 2500 / 2500
Balance -320 / -320 -1540 / -1540
[2024-11-19] MEDS: CELEBREX 200 MG PO ×2 (07:36→20:35)
[2024-11-19] MEDS: NEURONTIN 300 MG PO ×3 (07:36→21:52)
[2024-11-19] MEDS: MYLICON 80 MG PO ×2 (07:37→20:35)
[2024-11-19] MEDS: SENOKOT 17.2 MG PO ×2 (07:37→20:35)
[2024-11-19] MEDS: MIRALAX 17 GRAMS PO ×2 (07:37→20:34)
[2024-11-19 07:41] VITALS: BP 124/74
--- NOTE | 2024-11-19 08:22 | VNURNOTE ---
Chart reviewed. [facility]. Will continue to follow hospital course and DC plans.
[2024-11-19] MEDS: VITAMIN B1 100 MG PO (09:39)
[2024-11-19] MEDS: DULCOLAX 10 MG RECTAL (09:40)
--- NOTE | 2024-11-19 09:51 | W.PN.NEPH.PH ---
Today's Communication / Plan
-
Follow electrolyte
Maintain fluid restrict
Samsca to be provided as needed, none today need
Assessment/Plan
-
Assessment
Right sided back pain
Constipation
Right hydronephrosis
Kidney stone nonobstructive
Hyponatremia
Metastatic uterine cancer
Hypothyroidism
Chronic pain, intrathecal pain pump
Plan
Clinical picture suggests excess ADH, likely due to pain, NSAIDs, pain control medicines
Continue fluid restriction 40 ounces per day
Samsca was provided on 11/18/2024 with serum sodium now up to 136
Would hold NSAIDs if possible but this may not be possible given her pain
Follow BMP and continue to use Samsca as needed
-
-
Date of Service: November 19, 2024
CC / HPI / ROS
-
Chief Complaint:
Hyponatremia
History of Present Illness:
Serum sodium up to 136 after Samsca administration on 11/18/2024
Hemodynamically stay
Review of Systems:
Grossly nonoliguric via Alfred at 2500 cc
No fever
Labs
-
Labs:
WBC 4.5 10^3/uL (4.8-10.8) L 11/19/24 04:29
RBC 3.96 10^6/uL (4.20-5.40) L 11/19/24 04:29
Hgb 11.7 g/dL (12.0-16.0) L 11/19/24 04:29
Hct 35.6 % (37.0-47.0) L 11/19/24 04:29
Plt Count 204 10^3/uL (130-400) 11/19/24 04:29
Sodium 136 mmol/L (135-145) D 11/19/24 04:29
Potassium 4.4 mmol/L (3.5-5.1) 11/19/24 04:29
Chloride 95 mmol/L (98-107) L 11/19/24 04:29
Carbon Dioxide 32 mmol/L (22-30) H 11/19/24 04:29
BUN 22 mg/dl (7-17) H 11/19/24 04:29
Creatinine 0.7 mg/dL (0.6-1.0) 11/19/24 04:29
eGFR > 60.00 11/19/24 04:29
Glucose 191 mg/dl (70-99) H 11/19/24 04:29
Calcium 9.7 mg/dl (8.4-10.2) 11/19/24 04:29
Albumin 3.6 g/dl (3.5-5.0) 11/16/24 15:57
Physical Exam
-
Vital Signs:
Vital Signs
Temp Pulse Resp BP Pulse Ox
97.5 F 73 18 124/74 97
11/19/24 07:41 11/19/24 07:41 11/19/24 07:41 11/19/24 07:41 11/19/24 07:41
Cardiovascular:: Regular rate and rhythm
Respiratory:: Bilateral: CTA
Lung Excursion:: Normal
Abdomen:: Tender
Bowel Sounds:: Decreased
Extremity Edema:: +1: Bilateral:
Alfred Catheter: Yes
--- NOTE | 2024-11-19 11:07 | CON.ONC ---
Impression
Impression
Acute onset lower extremity numbness and weakness
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
Left renal pelvis tumor versus hemorrhage
Cancer related pain status post intrathecal pump placement 10/24, managed by Drs. Nunez and Caleb
Hyponatremia
Mild anemia with normal be 12 and folate, ferritin 39.8
Plan
Plan
Case discussed with Neurology.
Concern for central process or upper motor neuron disease although GBS not excluded. No evidence of transverse myelitis on MRI.
Cytology and immunoglobulin levels are pending from LP
She has been started on steroids empirically for possible GBS or other autoimmune condition causing the neurologic symptoms.
Checkpoint inhibitors have established associations with demyelinating disease, myasthenia gravis, GBS, and myositis.
Neurology will notify us if increased confusion concern for GBS mandates plasmapheresis.
If her neurologic presentation is an autoimmune complication from checkpoint inhibitor, should improve with steroids.
Upon review of the literature, epidural bupivacaine can cause profound motor as well as sensory deficits. I question whether this is the cause of her symptoms.
Thank you for consult, will follow along with you
Patient History
History of Present Illness
Virginia Watson is a 64-year-old woman diagnosed with metastatic endometrial cancer just about a year ago. She was initially treated with carboplatin, Taxol and Keytruda with last chemotherapy in March. She continued on maintenance Keytruda until
July when she was noted to have new liver metastases. At that time, lenvatinib was added. Separately, she has had abdominal pain which radiates down her left leg which has been difficult to control. It is sometimes accompanied by back pain.
She underwent placement of epidural pain pump earlier this month with continuous infusion bupivacaine. Her pain management doctor is Dr. John Nunez ([facility] and her neurosurgeon, who controls what is in the pump, is Dr. Ellis ([place]). She sees
Dr. Del Angel for [facility] ([facility] Lenvatinib has been intermittently held due to the pump placement. She has not had Keytruda for at least 6 weeks. Patient and sister report that adjustments to the pump regimen are ongoing. Patient feels it is
impacting her cognition and 'ability to keep everything together.' Patient is not sure whether the pain control has improved, but Sister Harjinder, participating by phone, states that patient now can set up whereas she was not able to do so prior to
the pump placement. Patient not reporting any autoimmune complications so far with Keytruda.
Patient's baseline functional status is being able to walk up stairs. Beginning the day prior to admission, she started to note numbness and tingling in her feet. By the next day, she had lost strength in her lower extremities and fell when trying
to get out of bed. Also had urinary retention. Patient states that the primary problem is actually loss of sensation although neurologist exam was notable for minimal muscle strength in proximal lower extremities, 3 out of 5 distal lower extremity
strength, and brisk reflexes. Touch sensation was also noted to be decreased. Patient underwent MRI of the brain which was unremarkable. She underwent MRI of the C, T and L spines notable for 'thin enhancement along discal thoracic cord, vascular
versus leptomeningeal cancer spread.' LP has been performed showing elevated protein and lymphocytes, cytology pending. Due to concern for possible autoimmune etiology, she has been started on high-dose steroids. She has noted no change in
strength over the last 24 hours or so. Patient and sister expressing concern that the symptoms may be due to to too high dose of bupivacaine in her pump.
Past-Medical/Surgical History
Past Medical History:
Uterine cancer status post hysterectomy 08/2023-> carbo/taxol/Keytruda, now with liver mets first noted in 07/2024, also r/p adenopathy, on Keytruda/lenvatinib
Migraine headaches
Left renal pelvis tumor vs hemorrhage
Peptic ulcer disease
Surgical History:
Hysterectomy
intrathecal right sided pain pump inserted oct 24 at [facility]
Social History
Tobacco: Non-smoker
Alcohol: None
Drug: None
Personal: Single
Living: Alone
Employment: Retired
Family History
Family History: Not pertinent
Patient Medication
�Medication �Instructions �Recorded �Confirmed �Last Taken �Type
rizatriptan 5 mg tablet 5 mg PO DAILYPRN PRN migraines 07/27/23 11/16/24 Unknown History
hydromorphone 2 mg tablet 2 mg PO Q8HPRN PRN breakthrough 08/06/23 11/16/24 Unknown Rx
pain #15 tabs
sennosides 8.6 mg tablet (Senna 17.2 mg (2 x 8.6 mg) PO BID #60 08/06/23 11/16/24 Unknown Rx
Laxative) tabs
celecoxib 200 mg capsule (Celebrex) 200 mg PO BID #30 caps 06/28/24 11/16/24 Unknown Rx
acetaminophen 500 mg tablet (Pain 1,000 mg PO TIDPRN PRN mild pain 11/16/24 11/16/24 Unknown History
Relief Extra Strength
(acetaminophen))
bisacodyl 10 mg rectal suppository 10 mg OK DAILYPRN PRN constipation 11/16/24 11/16/24 Unknown History
(Dulcolax (bisacodyl))
gabapentin 300 mg capsule 300 mg PO TID 11/16/24 11/16/24 Unknown History
lactulose 10 gram/15 mL oral 10 ml PO BID 11/16/24 11/16/24 Unknown History
solution (Constulose)
lenvatinib 14 mg/day (10 mg x 1 14 mg PO DAILY 11/16/24 11/16/24 Unknown History
and 4 mg x 1) capsule (Lenvima)
levothyroxine 50 mcg tablet 50 mcg PO DAILY 11/16/24 11/16/24 Unknown History
naloxegol 25 mg tablet (Movantik) 25 mg PO DAILY 11/16/24 11/16/24 Unknown History
ondansetron HCl 4 mg tablet 4 mg PO Q8HPRN PRN nausea and 11/16/24 11/16/24 Unknown History
vomiting
simethicone 80 mg chewable tablet 80 mg PO BID 11/16/24 11/16/24 Unknown History
Active Medications
Generic Name Dose Route Start Last Admin
Trade Name Freq PRN Reason Stop Dose Admin
Acetaminophen 1,000 mg 11/19/24 08:00
Acetaminophen 500 Mg Tablet PO 12/14/24 23:22
TIDPRN PRN
mild pain
Bisacodyl 10 mg 11/17/24 01:41 11/19/24 09:40
Bisacodyl 10 Mg Rectal Suppository RECTAL 12/15/24 01:40 10 mg
DAILYPRN PRN Administration
constipation
Celecoxib 200 mg 11/17/24 08:00 11/19/24 07:36
Celecoxib 200 Mg Capsule PO 12/15/24 07:59 200 mg
BID DYANA Administration
Famotidine 20 mg 11/18/24 22:00 11/18/24 21:11
Famotidine 20 Mg Tablet PO 11/22/24 22:01 Not Given
HS DYANA
Gabapentin 300 mg 11/17/24 08:00 11/19/24 07:36
Gabapentin 300 Mg Capsule PO 12/15/24 07:59 300 mg
TID DYANA Administration
Heparin Sodium (Porcine) 500 unit 11/18/24 16:15 11/19/24 04:31
Heparin Flush Pf (100 Unit/Ml) 5 Ml Syringe IV 12/16/24 16:14 500 unit
PER PROTOCOL DYANA Administration
Hydromorphone HCl 1 mg 11/17/24 04:00 11/18/24 03:53
Hydromorphone 1 Mg/Ml Carpuject IV 12/01/24 03:59 1 mg
Q4HPRN PRN Administration
mod pain
Methylprednisolone Sodium 258 mls @ 258 mls/hr 11/18/24 13:00 11/18/24 14:28
Succinate 1,000 mg/ Sodium IV 11/22/24 13:59 258 mls
Chloride Q24H DYANA Administration
Levothyroxine Sodium 50 mcg 11/17/24 06:00 11/19/24 05:16
Levothyroxine 50 Mcg Tablet PO 12/15/24 05:59 50 mcg
DAILY@0600 DYANA Administration
Non-Formulary Medication 25 mg 11/17/24 08:00
Naloxegol [Movantik] PO 12/15/24 07:59
DAILY DYANA
Ondansetron HCl 4 mg 11/19/24 07:58
Ondansetron 4 Mg/2 Ml Vial IV 12/14/24 23:22
Q6HPRN PRN
nausea and vomiting
Polyethylene Glycol 17 grams 11/17/24 08:00 11/19/24 07:37
Polyethylene Glycol Powder 17 Grams Packet PO 12/15/24 07:59 17 grams
BID DYANA Administration
Rizatriptan Benzoate 5 mg 11/17/24 03:51
Rizatriptan 10 Mg (Orally Disintegrating) Tablet PO 12/15/24 03:50
DAILYPRN PRN
migraines
Sennosides 17.2 mg 11/17/24 08:00 11/19/24 07:37
Sennosides (Senokot) 8.6 Mg Tablet PO 12/15/24 07:59 17.2 mg
BID DYANA Administration
Simethicone 80 mg 11/17/24 08:00 11/19/24 07:37
Simethicone 80 Mg Chewable Tablet PO 12/15/24 07:59 80 mg
BID DYANA Administration
Sodium Chloride 0 flush 11/17/24 02:00
Sodium Chloride 0.9% (Flush) Syringe IV 12/15/24 01:59
PER PROTOCOL DYANA
Thiamine HCl 100 mg 11/18/24 13:00 11/19/24 09:39
Thiamine 100 Mg Tablet PO 11/20/24 08:01 100 mg
DAILY DYANA Administration
Review of Systems
-
History Source: Patient and Family
All Other Systems: Reviewed and Negative
Constitutional: Reports Fatigue and Weakness
EENT: Reports No Symptoms
Respiratory: Reports No Symptoms
Cardiac: Reports No Symptoms
GI: Reports No Symptoms
Breast: Reports No Symptoms
: Reports No Symptoms
Musculoskeletal: Reports Muscle Weakness
Skin: Reports No Symptoms
Neuro: Reports Weakness and Numbness
Endocrine: Reports No Symptoms
Hematologic/Lymphatic: Reports No Symptoms
Allergy / Immunology: Reports No Symptoms
Psych: Reports No Symptoms
Physical Exam
-
General: Appears Chronically Ill and Other
HEENT: Moist Mucous Membranes; Negative Jaundice
Cardiology: Normal Sinus Rhythm, S1 and S2
Pulmonary: Clear; Negative Wheezes
GI: Soft and Normal Bowel Sounds
Musculoskeletal: No Clubbing, No Cyanosis and No Edema
Extremities: No C/C/E
Neurology: Other (Absent distal motor. Awake, alert, affect flat. )
Skin: Warm and Dry
Hematologic / Lymphatic: No Lymphadenopathy
Psych: Depressed
Labs
Lab Results
WBC 4.5 10^3/uL (4.8-10.8) L 11/19/24 04:
RBC 3.96 10^6/uL (4.20-5.40) L 11/19/24:
Hgb 11.7 g/dL (12.0-16.0) L 11/19/24:
Hct 35.6 % (37.0-47.0) L 11/19/24 04:
MCV 89.9 fL (81.0-99.0) 11/19/24 04:
MCH 29.5 pg (27.0-31.0) 11/19/24:
MCHC 32.9 g/dL (33.0-37.0) L 11/19/24:
RDW 12.6 % (11.5-14.5) 11/19/24:
Plt Count 204 10^3/uL (130-400) 11/19/24 04:29
MPV 10.8 fL (7.4-10.4) H 11/19/24 04:29
Abs Immat Gran (auto) 0.0 10^3/uL (0-0.05) 11/19/24 04:29
Absolute Neuts (auto) 4.1 10^3/uL (1.4-6.5) 11/19/24 04:29
Absolute Lymphs (auto) 0.3 10^3/uL (1.2-3.4) L 11/19/24 04:29
Absolute Monos (auto) 0.1 10^3/uL (0.1-0.6) 11/19/24 04:29
Absolute Eos (auto) 0.0 10^3/uL (0-0.7) 11/19/24 04:29
Absolute Basos (auto) 0.0 10^3/uL (0-0.2) 11/19/24 04:29
Immature Gran % 0.4 % (0-0.5) 11/19/24 04:29
Neutrophils % 91.4 % (42.2-75.2) H 11/19/24 04:29
Lymphocytes % 6.9 % (20.5-51.1) L 11/19/24 04:29
Monocytes % 1.3 % (1.7-9.3) L 11/19/24 04:29
Eosinophils % 0.0 % (0-6) 11/19/24 04:29
Basophils % 0.0 % (0-2) 11/19/24 04:29
Creatinine 0.7 mg/dL (0.6-1.0) 11/19/24 04:29
Vital Signs
Vital Signs
Temp Pulse Resp BP Pulse Ox
97.5 F 73 18 124/74 97
11/19/24 07:41 11/19/24 07:41 11/19/24 07:41 11/19/24 07:41 11/19/24 07:41
[2024-11-19] MEDS: SOLU-MEDROL 258 MG IV (12:41)
[2024-11-19 14:22] VITALS: BP 139/80; PULSE 71; O2SAT 97
[2024-11-19] MEDS: CITROMA 200 ML PO (15:12)
--- NOTE | 2024-11-19 15:24 | CM ---
Reviewed therapies' notes. They are recommending short term rehab for pain control.
DISCHARGE PLAN: Discharge to short term rehab facility.
[2024-11-19 16:00] VITALS: BP 119/66
--- NOTE | 2024-11-19 17:04 | W.PN.NEURO.1 ---
Today's Communication / Plan
-
continue Solumedrol 1g daily
awaiting CSF studies
Neuro Assessment/Plan
Assessment
Cervical spine MRI with and without contrast was unremarkable
Thoracic spine MRI with and without contrast suggested 'thin linear enhancement along the distal thoracic cord and conus medullaris are likely vascular in nature, less likely physician relations representative of leptomeningeal disease in the setting of known
malignancy or infectious/inflammatory process'
MRI of the lumbar spine with and without contrast suggested linear enhancement along the conus medullary
MRI brain w/ and w/o contrast no mets
CSF WBC 380, protein >600, glucose 40, RBC 34
Acute onset gait dysfunction with abnormal MRI of the thoracic and lumbar spines
Exam is overall suggestive of a central, not peripheral process.
Most likely etiology either is a paraneoplastic disorder associated with the patient's known endometrial carcinoma with metastasis, potentially associated with leptomeningeal extension
or dysfunction secondary to adverse effect of pembrolizumab producing proximal slightly greater than distal weakness in lower extremities.
discussed with heme/onc - checkpoint inhibitor neurotoxicities include demyelinating disease, GBS, MG, myositis, encephalitis. If there were transverse myelitis it would have shown on MRI. we are suspecting a central process given urinary retention,
UMN signs. and any of these conditions could be treated with plasmapheresis
At this time it does not appear that the patient's pain pump is related to symptomatology.
Plan
CSF very high cells and protein, awaiting further tests
continue Solumedrol 1g 2/5
Consider plasma exchange based on test results
Would at this time continue use of lenvatinib
Rehabilitation evaluations including speech therapy due to the patient's self-reported intermittent difficulty with swallowing
Subjective/Objective
Subjective Data
Date of Service: November 19, 2024
seen this morning. patient reports persisting lower extremity tingling, weakness
Objective Data
Vital Signs
Temp Pulse Resp BP Pulse Ox
36.4 C 73 18 124/74 94
11/19/24 07:41 11/19/24 07:41 11/19/24 07:41 11/19/24 07:41 11/19/24 11:49
Lab Results
11/19/24 04:29
11/19/24 04:29
PT 13.0 Sec (11.4-14.6) 11/18/24 10:58
INR 0.94 11/18/24 10:58
Sodium 136 mmol/L (135-145) D 11/19/24 04:29
Potassium 4.4 mmol/L (3.5-5.1) 11/19/24 04:29
BUN 22 mg/dl (7-17) H 11/19/24 04:29
Glucose 191 mg/dl (70-99) H 11/19/24 04:29
Calcium 9.7 mg/dl (8.4-10.2) 11/19/24 04:29
Vitamin B12 863 pg/ml (239-931) 11/18/24 06:40
Patient Allergies
Cephalosporins Allergy (Verified 11/16/24 10:30)
RED BLOTCHY JEAN
codeine Allergy (Verified 11/16/24 10:30)
Nausea
epinephrine Allergy (Verified 11/16/24 10:30)
SEVERE PAIN IN NECK
penicillin G Allergy (Verified 11/16/24 10:30)
RED BLOTCHY JEAN
Penicillins Allergy (Verified 11/16/24 10:30)
RED BLOTCHY JEAN
Physical Exam
-
AOx3, speech clear
VFF, EOMI, face symmetric
full strength b/l UE, 2-3/5 b/l LE
DTR 3+ right knee, non sustained ankle clonus.
length dependent loss of pin prick
[2024-11-19] MEDS: PEPCID 20 MG PO (21:52)
[2024-11-19 22:47] VITALS: BP 122/65
[2024-11-20] MEDS: SYNTHROID 50 MCG PO (05:55)
[2024-11-20 06:41] LABS: % Eosinophils 0.9 % (0-6); % Immature Granulocytes 0.3 % (0-0.5); % Lymphocytes 4.4 % (20.5-51.1); % Monocytes 3.3 % (1.7-9.3); % Neutrophils 91.1 % (42.2-75.2); Absolute Eosinophils 0.1 10^3/uL (0-0.7); Absolute Lymphocytes 0.6 10^3/uL (1.2-3.4); Absolute Monocytes 0.4 10^3/uL (0.1-0.6); Absolute Neutrophils 11.7 10^3/uL (1.4-6.5); Hematocrit 32.4 % (37.0-47.0); Hemoglobin 10.9 g/dL (12.0-16.0); Mean Corp Hgb Conc. 33.6 g/dL (33.0-37.0); Mean Corpuscular Hgb 29.9 pg (27.0-31.0); Mean Corpuscular Volume 88.8 fL (81.0-99.0); Mean Platelet Volume 10.5 fL (7.4-10.4); Nucleated Red Blood Cells % 0 %; Platelet Count 179 10^3/uL (130-400); Red Blood Cell Count 3.65 10^6/uL (4.20-5.40); Red Cell Dist. Width 12.7 % (11.5-14.5); White Blood Cell Count 12.9 10^3/uL (4.8-10.8)
[2024-11-20 07:09] LABS: Blood Urea Nitrogen 26 mg/dl (7-17); Calcium 9.3 mg/dl (8.4-10.2); Carbon Dioxide 34 mmol/L (22-30); Chloride 94 mmol/L (98-107); Estimated Creatinine Clearance 71 ml/min; Glucose 151 mg/dl (70-99); Potassium 4.4 mmol/L (3.5-5.1); Sodium 134 mmol/L (135-145); eGFR > 60.00
[2024-11-20 07:37] VITALS: BP 120/64
[2024-11-20] MEDS: NEURONTIN 300 MG PO ×2 (09:11→16:18)
[2024-11-20] MEDS: CELEBREX 200 MG PO (09:11)
[2024-11-20] MEDS: MYLICON 80 MG PO (09:11)
[2024-11-20] MEDS: MIRALAX 17 GRAMS PO (09:12)
[2024-11-20] MEDS: SENOKOT 17.2 MG PO (09:12)
[2024-11-20] MEDS: VITAMIN B1 100 MG PO (09:12)
--- NOTE | 2024-11-20 09:38 | W.PN.ONC ---
Today's Communication / Plan
-
Continue steroids, methylprednisolone (1gm/d, today will be 3rd dose of 5)
Await further input from neurology, continue steroids, t/c plasma exchange if no structural/other explanation for her weakness
Upon review of the literature, epidural bupivacaine can cause profound motor as well as sensory deficits. I question whether this is the cause of her symptoms.
Would consider transfer to [facility] if concern that her pain pump could be contributing to symptoms
Impression
Impression
Acute onset lower extremity numbness and weakness
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
Left renal pelvis tumor versus hemorrhage
Cancer related pain status post intrathecal pump placement 10/24, managed by Drs. Nunez and Caleb
Hyponatremia
Mild anemia with normal be 12 and folate, ferritin 39.8
Plan
Plan
Continue steroids, methylprednisolone (1gm/d, today will be 3rd dose of 5)
Await further input from neurology, continue steroids, t/c plasma exchange if no structural/other explanation for her weakness
Upon review of the literature, epidural bupivacaine can cause profound motor as well as sensory deficits. I question whether this is the cause of her symptoms.
Patient/sister have reached out to her pain mgmt and neurosurgeon for input
Would consider transfer to [facility] if concern that her pain pump could be contributing to symptoms
Subjective/Objective
Subjective/Objective
Still with severe leg weakness, and ongoing back pain. Swallowing okay. No shortness of breath. Sister on the phone.
Vital Signs:
Vital Signs
Temp Pulse Resp BP Pulse Ox
97.6 F 64 17 120/64 98
11/20/24 07:37 11/20/24 07:37 11/20/24 07:37 11/20/24 07:37 11/20/24 07:37
Lab Results:
Laboratory Data
WBC 12.9 10^3/uL (4.8-10.8) H 11/20/24 06:24
Hgb 10.9 g/dL (12.0-16.0) L 11/20/24 06:24
Plt Count 179 10^3/uL (130-400) 11/20/24 06:24
PT 13.0 Sec (11.4-14.6) 11/18/24 10:58
INR 0.94 11/18/24 10:58
eGFR > 60.00 11/20/24 06:23
--- NOTE | 2024-11-20 10:20 | W.PN.HOSP.TC ---
Addendum entered and electronically signed by Fidencio Luke MD 11/20/24 17:50:
Dr. Chandu Bassett called me back just now and mentioned she has accepted the patient for transfer. Patient is expected to hopefully transfer to [facility] tonight.
Addendum entered and electronically signed by Fidencio Luke MD 11/20/24 17:36:
I just spoke over the phone to a hospitalist at [facility], we discussed patient's case in detail, she said she will call me back after discussing with the rest of patient's care team at [facility].
Original Note:
Today's Communication/Plan
-
Continue IV steroids
Await CSF results
Mag citrate yesterday with significant amount of bowel movement, continue bowel regimen
Trial of Void today
I spoke to transfer center and physician at [facility], paperwork/logistics currently in process for transferring patient to there
Assessment / Plan
Assessment / Plan
Physical Exam
Gen-AAOx3, NAD
HEENT-NC, AT
Neck-supple
CV-reg, no M, +S1/S2
Lungs-clear B/L
Abd-soft, NT, ND
Ext-no edema
Musculoskeletal-no cyanosis, clubbing
Skin-warm and dry
Neuro-AAOx3. 5/5 Strength in the bilateral upper extremities. bilateral lower extremities with 2/5 strength. 3+ DTR at knees bilaterally. Impaired sensation from abdomen to lower extremities.
Psych-calm, cooperative
Assessment/Plan
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 adverse effect of pembrolizumab vs. side effect of epidural bupivacaine
Acute onset gait dysfunction with abnormal MRI of the thoracic and lumbar spines
Recent intrathecal pain pump inserted several weeks ago (for cancer-related pain, status post intrathecal pump placement 10/24/24, managed by Drs. MayraValdo)
-Patient states when she was discharged from the hospital on November 15, 2024 she was able to ambulate, but 11/16/24 developed sudden onset of lower extremity weakness.
-Physical exam, and urinary retention, suggest a central nervous system, not peripheral nervous system process.
-No evidence of transverse myelitis on MRI
-Continue Solumedrol steroids 1g / -- empiric therapy in case this is a immune-mediated process
-Hem/onc, neurology to consider plasmapheresis after cytology results -- options are plasmapheresis (assuming immune-mediated disease) or intrathecal chemo based on the cytology results
-IR consult for lumbar puncture: LP performed, and initial studies show CSF WBC 380, protein >600, glucose 40, RBC 34
-Brain MRI with no metastases
-Per neurosurgery, not findings in MRI C and T spines that could explain patient's symptoms
-Per neurology, pain pump/Bupivicaine is unlikely to be contributing given patient's CSF findings
Constipation
-Bowel regimen: MiraLAX twice a day in place of lactulose, senna, Movantik.
-In addition, Mag Citrate on 11/19/24
-Patient had significant bowel movement overnight 11/19/24 to 11/20/24
Acute urinary retention - concern for neurogenic bladder related to spinal process given lower extremity weakness.
-Could be related, at least partly, to constipation and partly to central nervous system process
-Alfred catheter placed, trial of void today
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
-s/p hysterectomy last year, on chemotherapy under the guidance of Dr. Del Angel and [facility]. Currently on Keytruda
-Continue Lenvatinib
Left renal pelvis tumor versus hemorrhage
Hyponatremia
-Suspect SIADH due to malignancy, pain. Continue PO fluid restriction. Looks euvolemic. Nephrology already involved in the case. [place].
-Continue PO fluid restriction 40 ounces per day
-Hold NSAIDs if possible
Chronic pain syndrome/chronic opiate dependence
-Malignancy associated pain. Has intrathecal pain pump in place, placed earlier this month in [facility].
Hypothyroidism
-Levothyroxine.
Osteopenia
Migraine headaches -as needed rizatriptan.
GERD
Peptic ulcer disease
Nephrolithiasis -3 mm right UVJ stone with mild hydroureteronephrosis. Should pass on its own. Continue Flomax? Seen by urology this week.
Full code
I discussed case with patient's sister Harjinder over the phone today at the same time I was seeing the patient today.
Transfer to [facility]:
Given the concern of possible contribution of pain pump/bupivicaine to patient's symptoms, and given that patient's oncologists and gynecologists are all at [facility], I called [facility] at [phone],
spoke to transfer center coordinator Muna, and then gynecology resident Dr. Nicolasa Suarez called me back. I explained to Dr. Nicolasa Suarez the reason for transferring the patient, Dr. Suarez then spoke to Dr. Del Angel (patient's primary creative services writer
oncologist) who mentioned that patient can be accepted for transfer to [facility], to the hospitalist service, and the accepting hospitalist would be Dr. Emmy Sanches.
Total time spent today on caring for patient including, but not limited to, phone call with [facility] physician, was 75 minutes.
Anticipated Discharge: 24 - 48 hours
Subjective/Interval History
-
Date of Service: November 20, 2024
Patient was seen and examined. She had large amounts of bowel movement overnight. She reported no new symptoms, although still with numbness in her abdomen and weakness in her legs.
Objective Data
-
Labs:
Laboratory Results
11/20/24 11/20/24
06:23 06:24
WBC 12.9 H
Hgb 10.9 L
Hct 32.4 L
Plt Count 179
Sodium 134 L
Potassium 4.4
Chloride 94 L
Carbon Dioxide 34 H
BUN 26 H
Creatinine 0.6
Glucose 151 H
Calcium 9.3
Vital Signs:
Vital Signs
Temp Pulse Resp BP Pulse Ox
97.6 F 64 17 120/64 98
11/20/24 07:37 11/20/24 07:37 11/20/24 07:37 11/20/24 07:37 11/20/24 07:37
I&O
11/19/24 11/20/24 11/21/24
06:59 06:59 06:59
Intake Total 960 / 960 1440 / 1440 237 / 237
Output Total 2500 / 2500 400 / 400
Balance -1540 / -1540 1040 / 1040 237 / 237
--- NOTE | 2024-11-20 10:28 | W.PN.NEURO.1 ---
Today's Communication / Plan
-
solumedrol 1 g day 01/23
pending CSF cytology, paraneoplastic eval
Neuro Assessment/Plan
Assessment
Cervical spine MRI with and without contrast was unremarkable
Thoracic spine MRI with and without contrast suggested 'thin linear enhancement along the distal thoracic cord and conus medullaris are likely vascular in nature, less likely customer sales representative of leptomeningeal disease in the setting of known
malignancy or infectious/inflammatory process'
MRI of the lumbar spine with and without contrast suggested linear enhancement along the conus medullary
MRI brain w/ and w/o contrast no mets
CSF WBC 380, protein >600, glucose 40, RBC 34
Acute onset gait dysfunction with abnormal MRI of the thoracic and lumbar spines
Exam is overall suggestive of a central, not peripheral process.
Most likely etiology either is a paraneoplastic disorder associated with the patient's known endometrial carcinoma with metastasis, potentially associated with leptomeningeal extension
or dysfunction secondary to adverse effect of pembrolizumab producing proximal slightly greater than distal weakness in lower extremities.
discussed with heme/onc - checkpoint inhibitor neurotoxicities include demyelinating disease, GBS, MG, myositis, encephalitis. If there were transverse myelitis it would have shown on MRI. we are suspecting a central process given urinary retention,
UMN signs. and any of these conditions could be treated with plasmapheresis.
with a drug neuro toxicity or bupivicaine toxicity, I would not expect such high CSF protein, wbcs
At this time it does not appear that the patient's pain pump is related to symptomatology.
Plan
CSF very high cells and protein, awaiting further tests
continue Solumedrol 1g 2/
Consider plasma exchange based on test results
Would at this time continue use of lenvatinib
Rehabilitation evaluations including speech therapy due to the patient's self-reported intermittent difficulty with swallowing
Subjective/Objective
Subjective Data
Date of Service: November 20, 2024
patient reports perhaps a little stronger, moving her toes easier.
missy removed this am for voiding trial
solumedrol 1g day 3
Objective Data
Vital Signs
Temp Pulse Resp BP Pulse Ox
36.4 C 64 17 120/64 98
11/20/24 07:37 11/20/24 07:37 11/20/24 07:37 11/20/24 07:37 11/20/24 07:37
Lab Results
11/20/24 06:24
11/20/24 06:23
PT 13.0 Sec (11.4-14.6) 11/18/24 10:58
INR 0.94 11/18/24 10:58
Sodium 134 mmol/L (135-145) L 11/20/24 06:23
Potassium 4.4 mmol/L (3.5-5.1) 11/20/24 06:23
BUN 26 mg/dl (7-17) H 11/20/24 06:23
Glucose 151 mg/dl (70-99) H 11/20/24 06:23
Calcium 9.3 mg/dl (8.4-10.2) 11/20/24 06:23
Vitamin B12 863 pg/ml (239-931) 11/18/24 06:40
Patient Allergies
Cephalosporins Allergy (Verified 11/16/24 10:30)
RED BLOTCHY JEAN
codeine Allergy (Verified 11/16/24 10:30)
Nausea
epinephrine Allergy (Verified 11/16/24 10:30)
SEVERE PAIN IN NECK
penicillin G Allergy (Verified 11/16/24 10:30)
RED BLOTCHY JEAN
Penicillins Allergy (Verified 11/16/24 10:30)
RED BLOTCHY JEAN
Physical Exam
-
AAO x3 speech clear
VFF, EOMI, face symmetric
full strength b/l UE
2/5 b/l LE, wiggle toes
vibratory loss L more than R LE
DTR 3+ knees, non-sustained clonus
--- NOTE | 2024-11-20 11:56 | CM ---
CM spoke with patient at bedside. Patient's friend of 50 years also at bedside. CM explained PT's recommendations for STR. Patient verbalized understanding. CM gave patient a list of facilities in the area for STR from medicare.gov. Patient and
friend will look over list and choose her top three choices.
ANTICIPATED DISCHARGE PLAN: Discharge to SNF for short term rehab.
[2024-11-20 12:00] VITALS: BP 123/66; PULSE 68; O2SAT 97
[2024-11-20] MEDS: SOLU-MEDROL 258 MG IV (12:21)
--- NOTE | 2024-11-20 12:28 | W.PN.NEPH.PH ---
Today's Communication / Plan
-
continue food restriction/ increase protein in diet is discuss with the patient
Assessment/Plan
-
Assessment
Right sided back pain
Constipation
Right hydronephrosis
Kidney stone nonobstructive
Hyponatremia
Metastatic uterine cancer
Hypothyroidism
Chronic pain, intrathecal pain pump
Plan
Clinical picture suggests excess ADH, likely due to pain, NSAIDs, pain control medicines
Continue fluid restriction 40 ounces per day
Samsca was provided on 11/18/2024 with serum sodiumIncreased to 136 with the current sodium 134
Would hold NSAIDs if possible but this may not be possible given her pain
Follow BMP and continue to use Samsca as needed
-
-
Date of Service: November 20, 2024
CC / HPI / ROS
-
Chief Complaint:
Hyponatremia
History of Present Illness:
hyponatremia improved
Review of Systems:
no chest pain, no shortness of breath chronic back pain
No fever
Labs
-
Labs:
WBC 12.9 10^3/uL (4.8-10.8) H 11/20/24 06:24
RBC 3.65 10^6/uL (4.20-5.40) L 11/20/24 06:24
Hgb 10.9 g/dL (12.0-16.0) L 11/20/24 06:24
Hct 32.4 % (37.0-47.0) L 11/20/24 06:24
Plt Count 179 10^3/uL (130-400) 11/20/24 06:24
Sodium 134 mmol/L (135-145) L 11/20/24 06:23
Potassium 4.4 mmol/L (3.5-5.1) 11/20/24 06:23
Chloride 94 mmol/L (98-107) L 11/20/24 06:23
Carbon Dioxide 34 mmol/L (22-30) H 11/20/24 06:23
BUN 26 mg/dl (7-17) H 11/20/24 06:23
Creatinine 0.6 mg/dL (0.6-1.0) 11/20/24 06:23
eGFR > 60.00 11/20/24 06:23
Glucose 151 mg/dl (70-99) H 11/20/24 06:23
Calcium 9.3 mg/dl (8.4-10.2) 11/20/24 06:23
Albumin 3.6 g/dl (3.5-5.0) 11/16/24 15:57
Physical Exam
-
Vital Signs:
Vital Signs
Temp Pulse Resp BP Pulse Ox
97.6 F 64 17 120/64 98
11/20/24 07:37 11/20/24 07:37 11/20/24 07:37 11/20/24 07:37 11/20/24 07:37
Cardiovascular:: Regular rate and rhythm
Respiratory:: Bilateral: CTA
Lung Excursion:: Normal
Abdomen:: Tender
Bowel Sounds:: Decreased
Extremity Edema:: +1: Bilateral:
Alfred Catheter: Yes
[2024-11-20 15:19] LABS: Paraneoplastic Ab IgG, CSF None Detected (None Detected)
[2024-11-20 15:43] VITALS: BP 106/57
--- NOTE | 2024-11-20 18:24 | W.DCSUMMARY ---
Discharge Summary
Discharge Data
Date of Admission: 11/16/24
Date of Discharge: 11/20/24
Total time spent discharging patient (in min): 45
-
Pending Results: Yes
Additional Pending Results:
Lab results, CSF results
Hospital Course
64-year-old female with past medical history of uterine cancer status post hysterectomy with metastases on Keytruda, endometrial cancer, migraines, osteopenia, GERD, peptic ulcer disease, lumbar radiculitis on OFFICE SERVICES ASSISTANT intrathecal pain pump, new right 3
mm UVJ stone with mild hydroureteronephrosis, presented for ongoing lower back pain and new onset leg numbness and weakness and trouble urinating/urinary retention, as well as constipation. Patient had lumbar spine MRI which showed multilevel
degenerative changes the lumbar spine slightly progressed from prior. There is 2.8 x 0.9 cm superficial collection within the right paraspinal soft tissues at the L4-L5 level. Neurosurgery, Neurology were consulted and Nephrology was consulted for
hyponatremia. Neurosurgery reviewed patient's MRI C and T spines, and mentioned that there is no compressive issue in her thoracic spine to explain her symptoms, and that in her cervical spine she has multi level stenosis with the worse being at
C4/5 where she has severe central stenosis but no abnormal spinal cord signal. Given patient's physical exam findings, concern was for a central nervous system etiology. MRI Brain was done without evidence of metastases. Lumbar puncture was done,
and patient was started on high-dose steroids. There was concern whether patient having received checkpoint inhibitor medication was causing an immune-mediate process resulting in patient's weakness or whether it was something related to patient's
pain pump/Bupivacaine. Given this dilemma and lack of patient's improvement, and the fact that all of (or at least most of) patient's physicians were at [facility], patient was accepted for transfer there. She received Samsca and PO
fluid restriction for her hyponatremia.
Patient's cytology and other lab results would have to be followed up by medical team at [facility].
Discharge Plan
-
Patient Disposition: Acute Care Hospital
Condition: Serious
Discharge Orders:
Discharge Patient (As Directed); Ordered 11/20/24
Ordered By: Fidencio Luke
Discharge Date and Time
Discharge Date/Time: 11/20/24 21:27
Print Language: PASHTO
[2024-11-20] MEDS: NON-FORMULARY ITEM 14 MG PO (18:28)
[2024-11-20 19:12] LABS: CSF VDRL (T. pallidum) Non Reactive (Non Reactive)
--- NOTE | 2024-11-20 19:39 | PTCARENOTE ---
Addendum entered by Ned Sloan RN 11/20/24 19:42:
All home meds provided back to pt in belongings bag with other personal items.
Original Note:
pending transfer at 2100 to [facility]. attempted to call report, Mann busy. Nightshift Mann Perez provide reports. will f/u with report call. transfer packet ready, imaging being prepared at this time. pt recently straight cathed for 450 ml venice
urine. tolerated well. report provided to Ana. plan of care continues to be followed.
[2024-11-20 21:04] VITALS: BP 116/62
--- NOTE | 2024-11-20 21:24 | TRANSFER ---
Report called to [facility], Luz ARAYA. Pt transported via ambulance Acute Care. Pt left with personal belongings from home and home medications retrieved from pharmacy.
[2024-11-21 10:19] LABS: Albumin Index 74.4 ratio (0.0-9.0); Albumin, CSF 271 mg/dL (0-35); Albumin, Serum 3643 mg/dL (3500-5200); CSF IgG Synthesis Rate 209.8 mg/d (<=8.0); CSF IgG/Albumin Ratio 0.26 ratio (0.09-0.25); CSF Oligoclonal Bands Positive (Negative); CSF Oligoclonal Bands Number 2 Bands (0-1); IgG 900 mg/dL (768-1632); IgG, CSF 71.5 mg/dL (0.0-6.0)
== END 2024-11-20 21:27 | disposition short-term general hospital (02) | DRG 92 ==
LOC: 1 ACUTE 23:28
PROVIDERS: Clinical Nurse Specialist Family Health; Hospitalist; Physician Assistant; Radiology Diagnostic Radiology; ADMITTING PHYSICIAN Hospitalist; ATTENDING PHYSICIAN Hospitalist; CONSULT PHYSICIAN Neurological Surgery; CONSULT PHYSICIAN Psychiatry & Neurology Neurology; CONSULT PHYSICIAN Specialist; EMERGENCY PHYSICIAN Emergency Medicine; FAMILY PHYSICIAN Family Medicine; OTHER PHYSICIAN Internal Medicine Hematology & Oncology
PROC: B01B1ZZ Fluoroscopy of Spinal Cord using Low Osmolar Contrast (ICD-10-PCS; 2024-11-18)
PROC: 009U3ZX Drainage of Spinal Canal, Percutaneous Approach, Diagnostic (ICD-10-PCS; 2024-11-18)
DX: T85.695A Other mechanical complication of other nervous system device, implant or graft, initial encounter (principal); C77.2 Secondary and unspecified malignant neoplasm of intra-abdominal lymph nodes; G82.20 Paraplegia, unspecified; C78.7 Secondary malignant neoplasm of liver and intrahepatic bile duct; E22.2 Syndrome of inappropriate secretion of antidiuretic hormone; F11.20 Opioid dependence, uncomplicated; K59.09 Other constipation; K59.03 Drug induced constipation; C54.1 Malignant neoplasm of endometrium; Z90.710 Acquired absence of both cervix and uterus; E03.9 Hypothyroidism, unspecified; M85.80 Other specified disorders of bone density and structure, unspecified site; K21.9 Gastro-esophageal reflux disease without esophagitis; K27.9 Peptic ulcer, site unspecified, unspecified as acute or chronic, without hemorrhage or perforation; Y83.8 Other surgical procedures as the cause of abnormal reaction of the patient, or of later complication, without mention of misadventure at the time of the procedure
CPT/HCPCS: 51701; 51798; 62328; 70553; 72156; 72157; 72158; 80048; 80053; 82040; 82042; 82533; 82607; 82728; 82746; 82784; 82945; 83916; 83930; 83935; 84157; 84300; 84443; 85025; 85610; 85652; 86140; 86255; 86592; 87015; 87070; 87102; 87116; 87205; 87502; 87811; 88108; 89051; 92523; 96374; 96376; 97163; 97167; 97530; 97535; 99285; A9575